=== PATIENT | male | born 1975 | race Caucasian/White ===

== ENCOUNTER 2025-01-24 17:23 | Inpatient (IN) | payer OTHER ==
[2025-01-24] MEDS ORDERED: LORazepam 2 MG/ML INJ IV PRN (17:35)
--- NOTE | 2025-01-24 17:53 | ED ---
General Adult HPI - General Chief complaint: Alcohol Stated complaint: Chest Pain Time Seen by Provider: 01/24/25 17:31 Source: patient, EMS Mode of arrival: EMS Limitations: no limitations - History of Present Illness Initial comments: Dictation was produced using Next audience dictation software. please excuse any grammatical, word or spelling errors. Chief Complaint: 49-year-old male presents emergency department for chest pain. History of Present Illness: Patient is a 49-year-old male transferred from detox facility. He was trying to get himself admitted for alcohol detoxification. During intake procedure he did report to them he had some substernal chest pain that radiate to the shoulder. Patient allegedly has history of cardiac catheterization. He has no stents but may have some coronary artery disease. Patient did report associated nausea. He had symptoms of chest symptoms for last 3 to 4 days. The ROS documented in this emergency department record has been reviewed and confirmed by me. Those systems with pertinent positive or negative responses have been documented in the HPI. All other systems are other negative and/or noncontributory. - Related Data Home Medications Medication Instructions Recorded Confirmed No Known Home Medications 01/24/25 01/24/25 Allergies Allergy/AdvReac Type Severity Reaction Status Date / Time Penicillins Allergy Rash/Hives/ Verified 01/24/25 18:11 Anaphylaxis Review of Systems ROS Statement: Those systems with pertinent positive or pertinent negative responses have been documented in the HPI. ROS Other: All systems not noted in ROS Statement are negative. Past Medical History Past Medical History: Chest Pain / Angina, Hypertension, Seizure Disorder History of Any Multi-Drug Resistant Organisms: None Reported Past Surgical History: No Surgical Hx Reported Past Psychological History: Anxiety, Depression, PTSD Smoking Status: Never smoker Past Alcohol Use History: Daily Past Drug Use History: None Reported General Exam - General Exam Comments Initial Comments: PHYSICAL EXAM: General Impression: Alert and oriented x3, not in acute distress HEENT: Normocephalic atraumatic, extra-ocular movements intact, pupils equal and reactive to light bilaterally, mucous membranes moist. Cardiovascular: Heart regular rate and rhythm Chest: Able to complete full sentences, no retractions, no tachypnea Abdomen: abdomen soft, non-tender, non-distended, no organomegaly Musculoskeletal: Pulses present and equal in all extremities, no peripheral edema Motor: no focal deficits noted Neurological: CN II-XII grossly intact, no focal motor or sensory deficits noted Skin: Intact with no visualized rashes Psych: Normal affect and mood Limitations: no limitations Course Vital Signs 01/24/25 01/24/25 17:38 19:42 Temperature 98.0 F 97.7 F Pulse Rate 70 80 Respiratory 20 20 Rate Blood Pressure 131/70 136/76 O2 Sat by Pulse 99 94 L Oximetry EKG Findings - EKG Comments: EKG Findings:: My EKG interpretation: Ventricular rate 73, sinus rhythm, NM 152, cures 97, QTc 440. No NM prolongation, no QTC prolongation, no ST or T-wave changes noted. Overall, this EKG is unremarkable Medical Decision Making - Medical Decision Making Was pt. sent in by a medical professional or institution (, PA, CARRIAGE SETTER, urgent care, hospital, or penitentiary...) When possible be specific @ -No Did you speak to anyone other than the patient for history (EMS, parent, family, police, friend...)? What history was obtained from this source @ -No Did you review nursing and triage notes (agree or disagree)? Why? @ -I reviewed and agree with nursing and triage notes Were old charts reviewed (outside hosp., previous admission, EMS record, old EKG, old radiological studies, urgent care reports/EKG's, penitentiary records)? Report findings @ -No old charts were reviewed Differential Diagnosis (chest pain, altered mental status, abdominal pain women, abdominal pain men, vaginal bleeding, musculoskeletal, weakness, fever, dyspnea, syncope, headache, dizziness, GI bleed, back pain, seizure, CVA, palpatations, mental health)? @ -Differential Chest Pain: Stable Angina, Unstable Angina, STEMI, NSTEMI Aortic Dissection, Pneumothorax, Musculoskeletal, Esophageal Spasm GERD, Cholecystitis, Pancreatitis, Zoster, this is not meant to be an all-inclusive list. EKG interpreted by me (3pts min.). @ -See above X-rays interpreted by me (1pt min.). @ -Chest x-ray is nonacute CT interpreted by me (1pt min.). @ -None done U/S interpreted by me (1pt. min.). @ -None done What testing was considered but not performed or refused? (CT, X-rays, U/S, labs)? Why? @ -None What meds were considered but not given or refused? Why? @ -None Was smoking cessation discussed for >3mins.? @ -No Were there social determinants of health that impacted care today? How? (Homelessness, low income, unemployed, alcoholism, drug addiction, transportation, low edu. Level, literacy, decrease access to med. care, half-way, rehab)? @ -Alcoholism Was there de-escalation of care discussed even if they declined (Discuss DNR or withdrawal of care, Hospice)? DNR status @ -No What co-morbidities impacted this encounter? (DM, HTN, Smoking, COPD, CAD, Cancer, CVA, ARF, Chemo, Hep., AIDS, mental health diagnosis, sleep apnea, morbid obesity)? @ -History of chest pain Was patient admitted / discharged? Hospital course, mention meds given and route, prescriptions, significant lab abnormalities, going to OR and other pertinent info. @ -49-year-old male presents emergency department for chest pain and detox for alcohol withdrawal he tried to check in at [facility] however was redirected to the ER after a patient complained of chest pain. Patient has no reported clear history of coronary artery disease or coronary artery stent. Does report some chest pain. Patient received aspirin and nitro per EMS. EKG is unremarkable. Laboratory evaluation obtained. Labs within acceptable limits except for troponin of 0.198. No old troponins for comparison. Chest x-ray is nonacute. Patient started on heparin. Case discussed with hospitalist for admission pending discussed with atm mechanic. Did you discuss the management of the patient with other professionals (professionals i.e. , PA, CARRIAGE SETTER, lab, RT, psych nurse, rn social services, auto battery builder, teacher, training officer, case briefer)? Give summary @ -See above Was critical care preformed (if so, how long)? @ -Yes, 33 minutes for NSTEMI Undiagnosed new problem with uncertain prognosis? @ -No Drug Therapy requiring intensive monitoring for toxicity (Heparin, Nitro, Insulin, Cardizem)? @ -No Were any procedures done? @ -No Diagnosis/symptom? Acute, or Chronic, or Acute on Chronic? Uncomplicated (without systemic symptoms) or Complicated (systemic symptoms)? @ -Acute coronary syndrome Side effects of treatment? @ -No Exacerbation, Progression, or Severe Exacerbation? @ -No Poses a threat to life or bodily function? How? (Chest pain, [place], [place], pneumonia, PE, COPD, DKA, ARF, appy, cholecystitis, CVA, Diverticulitis, Homicidal, Suicidal, threat to staff... and all critical care pts) @ -yes - Lab Data Result diagrams: 01/24/25 18:05 01/24/25 18:05 Lab Results 01/24/25 01/24/25 01/24/25 Range/Units 18:05 18:05 18:05 WBC 6.4 (3.8-10.6) k/uL RBC 4.39 (4.30-5.90) m/uL Hgb 13.5 (13.0-17.5) gm/dL Hct 41.3 (39.0-53.0) % MCV 94.2 (80.0-100.0) fL MCH 30.9 (25.0-35.0) pg MCHC 32.7 (31.0-37.0) g/dL RDW 16.1 H (11.5-15.5) % Plt Count 171 (150-450) k/uL MPV 8.4 Neutrophils % 49 % Lymphocytes % 35 % Monocytes % 6 % Eosinophils % 6 % Basophils % 1 % Neutrophils # 3.2 (1.3-7.7) k/uL Lymphocytes # 2.3 (1.0-4.8) k/uL Monocytes # 0.4 (0-1.0) k/uL Eosinophils # 0.4 (0-0.7) k/uL Basophils # 0.0 (0-0.2) k/uL Anisocytosis Slight PT 11.5 (10.0-12.5) sec INR 1.1 (<1.2) APTT 24.0 (22.0-30.0) sec Sodium 136 L (137-145) mmol/L Potassium 4.0 (3.5-5.1) mmol/L Chloride 101 (98-107) mmol/L Carbon Dioxide 21 L (22-30) mmol/L Anion Gap 14 mmol/L BUN 7 L (9-20) mg/dL Creatinine 0.63 L (0.66-1.25) mg/dL Est GFR (CKD-EPI)AfAm >90 (>60 ml/min/1.73 sqM) Est GFR (CKD-EPI)NonAf >90 (>60 ml/min/1.73 sqM) Glucose 85 (74-99) mg/dL Calcium 9.1 (8.4-10.2) mg/dL Magnesium 1.4 L (1.6-2.3) mg/dL Total Bilirubin 0.8 (0.2-1.3) mg/dL AST 52 (17-59) U/L ALT 22 (4-49) U/L Alkaline Phosphatase 125 (38-126) U/L Troponin I (0.000-0.034) ng/mL Total Protein 7.3 (6.3-8.2) g/dL Albumin 4.0 (3.5-5.0) g/dL Serum Alcohol 192 mg/dL 01/24/25 Range/Units 18:05 WBC (3.8-10.6) k/uL RBC (4.30-5.90) m/uL Hgb (13.0-17.5) gm/dL Hct (39.0-53.0) % MCV (80.0-100.0) fL MCH (25.0-35.0) pg MCHC (31.0-37.0) g/dL RDW (11.5-15.5) % Plt Count (150-450) k/uL MPV Neutrophils % % Lymphocytes % % Monocytes % % Eosinophils % % Basophils % % Neutrophils # (1.3-7.7) k/uL Lymphocytes # (1.0-4.8) k/uL Monocytes # (0-1.0) k/uL Eosinophils # (0-0.7) k/uL Basophils # (0-0.2) k/uL Anisocytosis PT (10.0-12.5) sec INR (<1.2) APTT (22.0-30.0) sec Sodium (137-145) mmol/L Potassium (3.5-5.1) mmol/L Chloride (98-107) mmol/L Carbon Dioxide (22-30) mmol/L Anion Gap mmol/L BUN (9-20) mg/dL Creatinine (0.66-1.25) mg/dL Est GFR (CKD-EPI)AfAm (>60 ml/min/1.73 sqM) Est GFR (CKD-EPI)NonAf (>60 ml/min/1.73 sqM) Glucose (74-99) mg/dL Calcium (8.4-10.2) mg/dL Magnesium (1.6-2.3) mg/dL Total Bilirubin (0.2-1.3) mg/dL AST (17-59) U/L ALT (4-49) U/L Alkaline Phosphatase (38-126) U/L Troponin I 0.198 H* (0.000-0.034) ng/mL Total Protein (6.3-8.2) g/dL Albumin (3.5-5.0) g/dL Serum Alcohol mg/dL Disposition Clinical Impression: NSTEMI (non-ST elevated myocardial infarction) Disposition: ADMITTED IP TO THIS HOSP Condition: Fair Referrals: None,Stated [Primary Care Provider] - 1-2 days Decision Time: 19:51
[2025-01-24] MEDS: LORazepam 2 MG/ML INJ IV PRN (18:13)
[2025-01-24 18:14] LABS: Anisocytosis Slight; Basophils % (A) 1 %; Eosinophils # (A) 0.4 k/uL (0-0.7); Eosinophils % (A) 6 %; HCT 41.3 % (39.0-53.0); HGB 13.5 gm/dL (13.0-17.5); Lymphocytes # (A) 2.3 k/uL (1.0-4.8); Lymphocytes % (A) 35 %; MCH 30.9 pg (25.0-35.0); MCHC 32.7 g/dL (31.0-37.0); MCV 94.2 fL (80.0-100.0); Mean Platelet Volume 8.4; Monocytes # (A) 0.4 k/uL (0-1.0); Monocytes % (A) 6 %; Neutrophils # (A) 3.2 k/uL (1.3-7.7); Neutrophils % (A) 49 %; Platelet Count 171 k/uL (150-450); RBC 4.39 m/uL (4.30-5.90); RDW 16.1 % (11.5-15.5); WBC 6.4 k/uL (3.8-10.6)
[2025-01-24 18:21] LABS: INR 1.1 (<1.2); Prothrombin Time 11.5 sec (10.0-12.5)
[2025-01-24 18:24] LABS: ALT 22 U/L (4-49); AST 52 U/L (17-59); African American GFR (CKD) >90 (>60 ml/min/1.73 sqM); Alkaline Phosphatase 125 U/L (38-126); Anion Gap 14 mmol/L; Blood Urea Nitrogen 7 mg/dL (9-20); Calcium 9.1 mg/dL (8.4-10.2); Carbon Dioxide 21 mmol/L (22-30); Chloride 101 mmol/L (98-107); Glucose 85 mg/dL (74-99); Magnesium 1.4 mg/dL (1.6-2.3); Non-African American GFR(CKD) >90 (>60 ml/min/1.73 sqM); Sodium 136 mmol/L (137-145); Total Bilirubin 0.8 mg/dL (0.2-1.3); Total Protein 7.3 g/dL (6.3-8.2)
[2025-01-24 18:31] LABS: Alcohol 192 mg/dL
--- NOTE | 2025-01-24 19:24 | XR ---
EXAMINATION TYPE: XR chest 2V DATE OF EXAM: 01/24/2025 7:15 PM COMPARISON: None. CLINICAL INDICATION: Male, 49 years old with history of Chest Pain, TECHNIQUE: Frontal and lateral views of the chest are obtained. FINDINGS: There is no focal air space opacity, pleural effusion, or pneumothorax seen. The cardiac silhouette size is within normal limits. The osseous structures are intact. IMPRESSION: No acute process. [facility], , 01/24/2025 7:22 PM
[2025-01-24] MEDS ORDERED: NITROGLYCERIN SL TABS 0.4 MG TAB SUBLINGUAL PRN (19:46)
[2025-01-24] MEDS: ASPIRIN 81 MG PO STA (20:13)
[2025-01-24] MEDS: HEPARIN SOD,PORK IN 0.45% NACL 25,000 UNIT in 0.45% NACL 1 250ML.BAG IV SCH (20:14)
[2025-01-24] MEDS: HEPARIN SODIUM 1,000 UN/ML (10ML VL) IV ONE (20:14)
[2025-01-24] MEDS: NITROGLYCERIN-D5W PMX 50 MG in DEXTROSE/WATER 1 250ML.BAG IV SCH (20:56)
[2025-01-24] MEDS ORDERED: ONDANSETRON 4 MG in SODIUM CHLORIDE 0.9% 50 ML IVPB PRN (23:04)
[2025-01-25] MEDS: LORazepam 2 MG/ML INJ IV PRN (01:19)
[2025-01-25] MEDS: HEPARIN SODIUM 1,000 UN/ML (10ML VL) IV PRN (04:17)
[2025-01-25] MEDS ORDERED: ASPIRIN 325 MG TAB PO SCH (09:00)
[2025-01-25] MEDS: ASPIRIN 81 MG PO SCH (10:02)
[2025-01-25 10:41] LABS: Partial Thromboplastin Time 47.9 sec (22.0-30.0)
[2025-01-25 10:52] LABS: Chol/HDL Ratio 1.53 Ratio; LDL Cholesterol,Calculated 38.4 mg/dL (0.0-131.0); VLDL Calculation 8.62 mg/dL (5.00-40.00)
--- NOTE | 2025-01-25 10:59 | P.CRDCN ---
History of Present Illness Consult date: 01/25/25 Reason for Consult (text): Chest pain, elevated troponin History of present illness: This is a 49-year-old male with past medical history of hypertension, seizure disorder, alcohol abuse, marijuana use. We have been asked to evaluate the judy ent for NSTEMI. Patient states that a few months ago, he was seen at [facility] for chest pain and thought he had an [facility] at that time and had a cardiac cath done. Patient was unsure if he had a stent placed but has not been placed on antiplatelet medication. Patient presents to the hospital with what he calls anxiety in his chest that then turns into tightness in his chest that has been going on for about 1 month. He does have nausea when he has the pain along with shortness of breath and sweats. Regarding alcohol, patient drinks 1 L of vodka per day. He uses marijuana 2 to 3 days/week. Regarding his home medications. He states he has not taken any for the last few days. He currently has no medications listed on his home list. Blood pressure 118/74, heart rate 74, pulse ox 96% on room air. Patient is seen today in the emergency center waiting for a bed on the cardiac stepdown unit. Patient has been started on heparin drip and nitroglycerin drip -EKG: Sinus rhythm -Chest x-ray: No acute process. -Laboratory studies: CBC unremarkable. Sodium 136, potassium 4, BUN 7 crea tinine 0.63. Troponin 0.198, 0.194, 0.195. -Home cardiac medications: None Review Of Systems: At the time of my exam: CONSTITUTIONAL: Denies fever or chills. HEENT: Denies blurred vision, vision changes, or eye pain. Denies hemoptysis CARDIOVASCULAR: Reports chest pain. Denies orthopnea. Denies PND. Denies palpitations RESPIRATORY: Denies shortness of breath. GASTROINTESTINAL: Denies abdominal pain. Denies nausea or vomiting. HEMATOLOGIC: Denies bleeding disorders. GENITOURINARY: Denies any blood in urine. SKIN: Denies puritis. Denies rash. Physical examination: Gen: This is a 49-year-old male in no acute distress VS: reviewed HEENT: Head is atraumatic, normocephalic. Pupils equal, round. Sclerae is anicteric. NECK: Supple. No JVD. LUNGS: Clear to auscultation. No wheezes or rhonchi. No intercostal retractions. HEART: Regular rate and rhythm. No murmur. ABDOMEN: Soft No tenderness. EXTREMITIES: No pedal edema. No calf tenderness. NEUROLOGICAL: Patient is awake, alert and oriented x3. Assessment: NSTEMI with a flat pattern Alcohol use of 1 L of vodka daily Marijuana use Plan: Continue heparin drip Continue nitroglycerin drip Obtain records from [place] Obtain 2-D echocardiogram and Doppler study to assess cardiac structure and function Further recommendations to follow based upon clinical course Thank you kindly for this consultation. Nurse practitioner note has been reviewed, I agree with documented findings and plan of care. Patient was seen and examined. Past Medical History Past Medical History: Chest Pain / Angina, Hypertension, Seizure Disorder History of Any Multi-Drug Resistant Organisms: None Reported Past Surgical History: No Surgical Hx Reported Past Psychological History: Anxiety, Depression, PTSD Smoking Status: Never smoker Past Alcohol Use History: Daily Past Drug Use History: None Reported Medications and Allergies Home Medications Medication Instructions Recorded Confirmed Type No Known Home Medications 01/24/25 01/24/25 History Allergies Allergy/AdvReac Type Severity Reaction Status Date / Time Penicillins Allergy Rash/Hives/ Verified 01/24/25 18:11 Anaphylaxis Physical Exam Vitals: Vital Signs Temp Pulse Resp BP Pulse Ox 01/25/25 07:38 74 18 118/74 96 01/25/25 05:24 64 20 112/54 98 01/25/25 03:22 65 18 110/74 94 L 01/25/25 02:25 88 20 129/62 94 L 01/25/25 01:10 94 20 108/83 95 01/25/25 00:10 86 18 118/70 96 01/24/25 23:25 85 20 119/66 94 L 01/24/25 23:00 89 16 122/74 94 L 01/24/25 22:00 99 16 100/56 93 L 01/24/25 21:30 92 125/70 01/24/25 21:15 84 131/74 01/24/25 21:01 84 18 127/68 93 L 01/24/25 19:42 97.7 F 80 20 136/76 94 L 01/24/25 17:38 98.0 F 70 20 131/70 99 Intake and Output 01/24/25 01/25/25 01/25/25 22:59 06:59 14:59 Intake Total 96.917 Balance 96.917 Intake: Intake, IV Titration 96.917 Amount Heparin Sod,Pork in 0.45% 79.167 NaCl 25,000 unit In 0.45 % NaCl 1 250ml.bag @ 8.8 UNITS/KG/HR 9.979 mls/hr IV .Q24H [facility] Rx#: [id number] Nitroglycerin-D5w Pmx 50 17.75 mg In Dextrose/Water 1 250ml.bag @ 5 MCG/MIN 1.5 mls/hr IV .Q24H [facility] Rx#: [id number] Other: Weight 113.398 kg Results 01/24/25 18:05 01/24/25 18:05 Cardiac Enzymes 01/24/25 01/24/25 01/24/25 Range/Units 18:05 18:05 21:02 AST 52 (17-59) U/L Troponin I 0.198 H* 0.194 H* (0.000-0.034) ng/mL 01/25/25 Range/Units 02:47 AST (17-59) U/L Troponin I 0.195 H* (0.000-0.034) ng/mL Coagulation 01/24/25 01/25/25 Range/Units 18:05 02:47 PT 11.5 (10.0-12.5) sec APTT 24.0 35.2 H (22.0-30.0) sec CBC 01/24/25 Range/Units 18:05 WBC 6.4 (3.8-10.6) k/uL RBC 4.39 (4.30-5.90) m/uL Hgb 13.5 (13.0-17.5) gm/dL Hct 41.3 (39.0-53.0) % Plt Count 171 (150-450) k/uL Comprehensive Metabolic Panel 01/24/25 Range/Units 18:05 Sodium 136 L (137-145) mmol/L Potassium 4.0 (3.5-5.1) mmol/L Chloride 101 (98-107) mmol/L Carbon Dioxide 21 L (22-30) mmol/L BUN 7 L (9-20) mg/dL Creatinine 0.63 L (0.66-1.25) mg/dL Glucose 85 (74-99) mg/dL Calcium 9.1 (8.4-10.2) mg/dL AST 52 (17-59) U/L ALT 22 (4-49) U/L Alkaline Phosphatase 125 (38-126) U/L Total Protein 7.3 (6.3-8.2) g/dL Albumin 4.0 (3.5-5.0) g/dL Current Medications Generic Name Dose Route Start Last Admin Trade Name Freq PRN Reason Stop Dose Admin Heparin Sodium (Porcine) 0 unit 01/25/25 04:05 01/25/25 04:17 Heparin Sodium 1,000 Un/Ml (10ml Vl) IV 2,834.95 unit PER PROTOCOL PRN Administration Low PTT Protocol Heparin Sodium/Sodium Chloride 250 mls @ 9.979 mls/hr 01/24/25 20:00 01/25/25 04:10 25,000 unit/ Sodium Chloride IV 10.8 units/kg/hr .Q24H [facility] 12.247 mls/hr Titration Protocol 8.8 UNITS/KG/HR Nitroglycerin/Dextrose 50 mg/ 250 mls @ 1.5 mls/hr 01/24/25 20:45 01/25/25 04:29 IV Solution IV 15 mcg/min .Q24H [facility] 4.5 mls/hr Titration Protocol 5 MCG/MIN Lorazepam 1 mg 01/24/25 17:35 01/25/25 06:38 Lorazepam 2 Mg/Ml Inj IV 1 mg Q1HR PRN Administration CIWA 10 to 15 Lorazepam 1 mg 01/24/25 17:35 01/25/25 04:26 Lorazepam 2 Mg/Ml Inj IV 1 mg Q2HR PRN Administration CIWA 8 or 9 Lorazepam 2 mg 01/24/25 17:35 Lorazepam 2 Mg/Ml Inj IV 01/26/25 17:36 Q10M PRN CIWA 16 or higher Nitroglycerin 0.4 mg 01/24/25 19:46 Nitroglycerin Sl Tabs 0.4 Mg Tab SUBLINGUAL Q5M PRN Chest Pain Ondansetron HCl 4 mg 01/24/25 23:16 Ondansetron 4 Mg/2 Ml Vial IVP Q6H PRN NAUSEA AND VOMITING Intake and Output 02/01/25/25 01/25/25 22:59 06:59 14:59 Intake Total 96.917 Balance 96.917 Intake: Intake, IV Titration 96.917 Amount Heparin Sod,Pork in 0.45% 79.167 NaCl 25,000 unit In 0.45 % NaCl 1 250ml.bag @ 8.8 UNITS/KG/HR 9.979 mls/hr IV .Q24H [facility] Rx#: [id number] Nitroglycerin-D5w Pmx 50 17.75 mg In Dextrose/Water 1 250ml.bag @ 5 MCG/MIN 1.5 mls/hr IV .Q24H [facility] Rx#: [id number] Other: Weight 113.398 kg 01/24/25 18:05 01/24/25 18:05
[2025-01-25] MEDS: MAGNESIUM SULFATE-D5W PMX 1 GM in DEXTROSE/WATER 1 100ML.BAG IVPB SCH (12:49)
--- NOTE | 2025-01-25 14:22 | P.HPIM ---
History of Present Illness H&P Date: 01/25/25 Chief Complaint: Chest pain Patient is a 49 year old male with past medical history of angina, cardiac catheterization, hypertension, seizure disorder presented to the ED with chest pain. Patient states that he began experiencing chest tightness yesterday. He was trying to get himself admitted to [place] for alcohol detoxification. He then endorsed substernal chest pain that radiated to the shoulder. Associated with that he experienced nausea. He was transferred from [place] to the ED here. Patient reports having a cardiac catheterization done in the past but denies any stents placed. Denies fever, chills, shortness of breath, cough, palpitations, abdominal pain, vomiting, hematuria, dysuria, hematochezia, melena, headache, slurred speech, numbness, tingling, dizziness, lightheadedness, blurred vision, double vision. ED documentation reviewed. In the ED patient was treated with aspirin 325 mg, heparin drip, lorazepam 1 mg, nitro drip. Vitals on admission T 98 F, NV 70 bpm, RR 20, BP 131/70, oxygen saturation 99% on room air EKG independently interpreted as sinus rhythm, RBBB, rate 64 bpm, QTc 464 ms Chest x-ray shows no acute process Labs on admission show WBC 6.4, hemoglobin 13.5, RDW 16.1, platelet count 171, INR 1.1, APTT 24, sodium 136, potassium 4, bicarb 21, anion gap 14, BUN 7, cre atinine 0.60, from 1.4 Troponin I 0.198, 0.194, 0.195 Serum alcohol 192 Lipid panel shows triglycerides 43, cholesterol 135, LDL 38.4, VLDL 8.62, HDL 88 Review of systems: Pertinent positives and negatives as discussed in HPI, a complete review of s ystems was performed and all other systems are negative. Social history: Tobacco: Never smoker Alcohol: Daily Recreational drugs: Denies use Travel: No recent travel history Sick contacts: None Physical examination: Vital signs reviewed General: nontoxic, no distress, appears at stated age Derm: warm, dry, intact Head: atraumatic, normocephalic, symmetric Eyes: EOMI, anicteric sclera Mouth: no lip lesion, mucus membranes moist Cardiovascular: S1 S2 reg, no murmur Lungs: CTA bilateral, no rhonchi, no rales, no accessory muscle use Abdominal: soft, non-tender to palpation Extremities: No cyanosis, clubbing, or pedal edema. Neuro: Alert, Oriented, Gross neurological examination did not reveal any focal deficits. Psych: well appearing, appropriate affect Assessment/Plan: Patient is a 49 year old male with past medical history of angina, cardiac catheterization, hypertension, seizure disorder presented to the ED with chest pain. Active: #. NSTEMI EKG independently interpreted as sinus rhythm, RBBB, rate 64 bpm, QTc 464 ms Troponin I 0.198, 0.194, 0.195 Lipid panel shows triglycerides 43, cholesterol 135, LDL 38.4, VLDL 8.62, HDL 88 Continue nitroglycerin 0.4 mg sublingual Q5M as needed for chest pain Continue heparin drip and nitro drip Continue aspirin 81 mg p.o. daily, atorvastatin 80 mg p.o. at bedtime Obtain echocardiogram Continue telemetry monitoring Cardiology consulted #. Alcohol withdrawal Serum alcohol 192 Lorazepam 1 mg IV every 2 hours as needed for CIWA 8 or 9, Lorazepam 1 mg IV every hour as needed for CIWA 10-15, Lorazepam 2 mg IV Q10M as needed for CIWA 16 or higher Assess CIWA scale #. Nausea and vomiting Continue ondansetron 4 mg IVP every 6 hours as needed #. Mild hyponatremia Sodium 136 Monitor BMP #. Hypomagnesemia Mg 1.4 Magnesium sulphate 4 gms IVPB Q1H Monitor Mg level F: None E: Replete magnesium DVT prophylaxis: Heparin drip and SCD GI prophylaxis: Pantoprazole 40 mg PO daily The patient is admitted with an anticipated more than 2 midnight stay for evaluation of chest pain CODE STATUS: FULL CODE Discussed with: Patient Anticipated discharge place: Home Past Medical History Past Medical History: Chest Pain / Angina, Hypertension, Seizure Disorder History of Any Multi-Drug Resistant Organisms: None Reported Past Surgical History: No Surgical Hx Reported Past Psychological History: Anxiety, Depression, PTSD Smoking Status: Never smoker Past Alcohol Use History: Daily Past Drug Use History: None Reported Medications and Allergies Home Medications Medication Instructions Recorded Confirmed Type No Known Home Medications 01/24/25 01/24/25 History Allergies Allergy/AdvReac Type Severity Reaction Status Date / Time Penicillins Allergy Rash/Hives/ Verified 01/24/25 18:11 Anaphylaxis Physical Exam Vitals: Vital Signs Temp Pulse Resp BP Pulse Ox 01/25/25 07:38 74 18 118/74 96 01/25/25 05:24 64 20 112/54 98 01/25/25 03:22 65 18 110/74 94 L 01/25/25 02:25 88 20 129/62 94 L 01/25/25 01:10 94 20 108/83 95 01/25/25 00:10 86 18 118/70 96 01/24/25 23:25 85 20 119/66 94 L 01/24/25 23:00 89 16 122/74 94 L 01/24/25 22:00 99 16 100/56 93 L 01/24/25 21:30 92 125/70 01/24/25 21:15 84 131/74 01/24/25 21:01 84 18 127/68 93 L 01/24/25 19:42 97.7 F 80 20 136/76 94 L 01/24/25 17:38 98.0 F 70 20 131/70 99 Intake and Output 01/24/25 01/25/25 01/25/25 22:59 06:59 14:59 Intake Total 96.917 Balance 96.917 Intake: Intake, IV Titration 96.917 Amount Heparin Sod,Pork in 0.45% 79.167 NaCl 25,000 unit In 0.45 % NaCl 1 250ml.bag @ 8.8 UNITS/KG/HR 9.979 mls/hr IV .Q24H [facility] Rx#: [id number] Nitroglycerin-D5w Pmx 50 17.75 mg In Dextrose/Water 1 250ml.bag @ 5 MCG/MIN 1.5 mls/hr IV .Q24H [facility] Rx#: [id number] Other: Weight 113.398 kg Results CBC & Chem 7: 01/24/25 18:05 01/24/25 18:05 Labs: Abnormal Lab Results - Last 24 Hours (Table) 01/24/25 01/24/25 01/24/25 Range/Units 18:05 18:05 18:05 RDW 16.1 H (11.5-15.5) % APTT (22.0-30.0) sec Sodium 136 L (137-145) mmol/L Carbon Dioxide 21 L (22-30) mmol/L BUN 7 L (9-20) mg/dL Creatinine 0.63 L (0.66-1.25) mg/dL Magnesium 1.4 L (1.6-2.3) mg/dL Troponin I 0.198 H* (0.000-0.034) ng/mL 01/24/25 01/25/25 01/25/25 Range/Units 21:02 02:47 02:47 RDW (11.5-15.5) % APTT 35.2 H (22.0-30.0) sec Sodium (137-145) mmol/L Carbon Dioxide (22-30) mmol/L BUN (9-20) mg/dL Creatinine (0.66-1.25) mg/dL Magnesium (1.6-2.3) mg/dL Troponin I 0.194 H* 0.195 H* (0.000-0.034) ng/mL
[2025-01-25] MEDS: chlordiazePOXIDE 25 MG CAP PO SCH (18:24)
[2025-01-25] MEDS: ONDANSETRON 4 MG/2 ML VIAL IVP PRN (19:50)
[2025-01-25] MEDS: ATORVASTATIN 80 MG TAB PO SCH (21:10)
[2025-01-25 23:43] VITALS: RESP 18
[2025-01-26] MEDS: PANTOPRAZOLE 40 MG TABLET PO SCH (06:17)
[2025-01-26 07:04] LABS: Anisocytosis Slight; HCT 35.8 % (39.0-53.0); HGB 11.6 gm/dL (13.0-17.5); MCH 31.1 pg (25.0-35.0); MCHC 32.3 g/dL (31.0-37.0); MCV 96.5 fL (80.0-100.0); Mean Platelet Volume 8.6; Platelet Count 111 k/uL (150-450); RBC 3.71 m/uL (4.30-5.90); RDW 16.1 % (11.5-15.5); WBC 5.5 k/uL (3.8-10.6)
[2025-01-26 07:29] LABS: African American GFR (CKD) >90 (>60 ml/min/1.73 sqM); Anion Gap 6 mmol/L; Blood Urea Nitrogen 6 mg/dL (9-20); Calcium 8.5 mg/dL (8.4-10.2); Carbon Dioxide 29 mmol/L (22-30); Chloride 99 mmol/L (98-107); Glucose 115 mg/dL (74-99); Non-African American GFR(CKD) >90 (>60 ml/min/1.73 sqM); Potassium 3.8 mmol/L (3.5-5.1); Sodium 134 mmol/L (137-145)
[2025-01-26 10:13] VITALS: BP 152/69; PULSE 95; TEMP 98
--- NOTE | 2025-01-26 11:55 | P.PN ---
Subjective Progress Note Date: 01/26/25 Principal diagnosis: Hospital course: Patient is a 49 year old male with past medical history of angina, cardiac catheterization, hypertension, seizure disorder presented to the ED with chest pain. Patient states that he began experiencing chest tightness yesterday. He was trying to get himself admitted to [place] for alcohol detoxification. He then endorsed substernal chest pain that radiated to the shoulder. Associated with that he experienced nausea. He was transferred from [place] to the ED here. Patient reports having a cardiac catheterization done in the past but denies any stents placed. Denies fever, chills, shortness of breath, cough, palpitations, abdominal pain, vomiting, hematuria, dysuria, hematochezia, melena, headache, slurred speech, numbness, tingling, dizziness, lightheadedness, blurred vision, double vision. ED documentation reviewed. In the ED patient was treated with aspirin 325 mg, heparin drip, lorazepam 1 mg, nitro drip. Vitals on admission T 98 F, NJ 70 bpm, RR 20, BP 131/70, oxygen saturation 99% on room air EKG independently interpreted as sinus rhythm, RBBB, rate 64 bpm, QTc 464 ms Chest x-ray shows no acute process Labs on admission show WBC 6.4, hemoglobin 13.5, RDW 16.1, platelet count 171, INR 1.1, APTT 24, sodium 136, potassium 4, bicarb 21, anion gap 14, BUN 7, creatinine 0.60, from 1.4 Troponin I 0.198, 0.194, 0.195 Serum alcohol 192 Lipid panel shows triglycerides 43, cholesterol 135, LDL 38.4, VLDL 8.62, HDL 88 01/26/25: Patient seen and examined at bedside today. Vital signs are stable. Labs today show hemoglobin 11.6, platelet count 111, APTT 36.9, sodium 134, D- dimer 0.48, creatinine 0.71. Review of systems: Pertinent positives and negatives as discussed in HPI, a complete review of systems was performed and all other systems are negative. Vitals: Signs Reviewed Physical examination: General: nontoxic, no distress, appears at stated age Derm: warm, dry, intact Head: atraumatic, normocephalic, symmetric Eyes: EOMI, anicteric sclera Mouth: no lip lesion, mucus membranes moist Cardiovascular: S1 S2 reg, no murmur Lungs: CTA bilateral, no rhonchi, no rales, no accessory muscle use Abdominal: soft, non-tender to palpation Extremities: No cyanosis, clubbing, or pedal edema. Neuro: Alert, Oriented, Gross neurological examination did not reveal any focal deficits. Psych: well appearing, appropriate affect Assessment/Plan: Patient is a 49 year old male with past medical history of angina, cardiac catheterization, hypertension, seizure disorder presented to the ED with chest pain. Active: #. NSTEMI EKG independently interpreted as sinus rhythm, RBBB, rate 64 bpm, QTc 464 ms Troponin I 0.198, 0.194, 0.195 Lipid panel shows triglycerides 43, cholesterol 135, LDL 38.4, VLDL 8.62, HDL 88 Continue nitroglycerin 0.4 mg sublingual Q5M as needed for chest pain Continue heparin drip and nitro drip Continue aspirin 81 mg p.o. daily, atorvastatin 80 mg p.o. at bedtime Obtain echocardiogram Continue telemetry monitoring Cardiology consulted #. Alcohol withdrawal Serum alcohol 192 Lorazepam 1 mg IV every 2 hours as needed for CIWA 8 or 9, Lorazepam 1 mg IV every hour as needed for CIWA 10-15, Lorazepam 2 mg IV Q10M as needed for CIWA 16 or higher Assess CIWA scale Seizure precautions Consult psych #. Nausea and vomiting Continue ondansetron 4 mg IVP every 6 hours as needed #. Mild hyponatremia Sodium 136 Monitor BMP #. Hypomagnesemia Mg 1.4 Magnesium sulphate 4 gms IVPB Q1H Monitor Mg level F: None E: Replete magnesium N: Heart healthy diet DVT prophylaxis: Heparin drip and SCD GI prophylaxis: Pantoprazole 40 mg PO daily Objective - Vital Signs Vital signs: Vital Signs Temp 97.7 F 01/26/25 03:33 Pulse 71 01/26/25 03:33 Resp 18 01/26/25 03:33 BP 121/81 01/26/25 03:33 Pulse Ox 98 01/26/25 03:33 FiO2 Intake & Output 01/25/25 01/26/25 01/26/25 18:59 06:59 18:59 Intake Total 701.947 0890.738 Balance 054.999 0860.738 Weight 108.5 kg Intake: Intake, IV Titration 182.792 16.738 Amount Heparin Sod,Pork in 0.45% 134.717 16.738 NaCl 25,000 unit In 0.45 % NaCl 1 250ml.bag @ 8.8 UNITS/KG/HR 9.979 mls/hr IV .Q24H [facility] Rx#: [id number] Nitroglycerin-D5w Pmx 50 48.075 mg In Dextrose/Water 1 250ml.bag @ 5 MCG/MIN 1.5 mls/hr IV .Q24H [facility] Rx#: [id number] Oral 1020 Other: Voiding Method Toilet # Voids 3 - Labs CBC & Chem 7: 01/26/25 06:36 01/26/25 06:36 Labs: Abnormal Lab Results - Last 24 Hours (Table) 01/25/25 01/25/25 01/26/25 Range/Units 02:47 10:17 06:36 RBC (4.30-5.90) m/uL Hgb (13.0-17.5) gm/dL Hct (39.0-53.0) % RDW (11.5-15.5) % Plt Count (150-450) k/uL APTT 47.9 H 36.9 H (22.0-30.0) sec Sodium (137-145) mmol/L BUN (9-20) mg/dL Glucose (74-99) mg/dL HDL Cholesterol 88.00 H (40.00-60.00) mg/dL 01/26/25 01/26/25 Range/Units 06:36 06:36 RBC 3.71 L (4.30-5.90) m/uL Hgb 11.6 L (13.0-17.5) gm/dL Hct 35.8 L (39.0-53.0) % RDW 16.1 H (11.5-15.5) % Plt Count 111 L (150-450) k/uL APTT (22.0-30.0) sec Sodium 134 L (137-145) mmol/L BUN 6 L (9-20) mg/dL Glucose 115 H (74-99) mg/dL HDL Cholesterol (40.00-60.00) mg/dL
--- NOTE | 2025-01-26 12:20 | P.DS ---
Providers Date of admission: 01/24/25 19:47 Expected date of discharge: 01/26/25 Attending physician: Bipin Burns Consults: 01/24/25 19:46 Consult Physician Urgent Consulting Provider: Gricel Murphy Consult Reason/Comments: chest pain, elevated troponin Do you want consulting provider notified?: Yes 01/26/25 07:10 Consult Physician Urgent Consulting Provider: Drew Bal Consult Reason/Comments: sucidal Do you want consulting provider notified?: Yes Primary care physician: Stated None Hospital Course: THIS IS NOT A DISCHARGE SUMMARY, BUT A SUMMARY OF CARE PT LEFT AGAINST MEDICAL ADVICE. Diagnosis: NSTEMI Alcohol withdrawal Nausea and vomiting Mild hyponatremia Hypomagnesemia Suicidal ideation Hospital Course: Patient is a 49 year old male with past medical history of angina, cardiac catheterization, hypertension, seizure disorder presented to the ED with chest pain. Patient states that he began experiencing chest tightness yesterday. He was trying to get himself admitted to [place] for alcohol detoxification. He then endorsed substernal chest pain that radiated to the shoulder. Associated with that he experienced nausea. He was transferred from [place] to the ED here. Patient reports having a cardiac catheterization done in the past but denies any stents placed. Denies fever, chills, shortness of breath, cough, palpitations, abdominal pain, vomiting, hematuria, dysuria, hematochezia, melena, headache, slurred speech, numbness, tingling, dizziness, lightheadedness, blurred vision, double vision. ED documentation reviewed. In the ED patient was treated with aspirin 325 mg, heparin drip, lorazepam 1 mg, nitro drip. Vitals on admission T 98 F, [place] 70 bpm, RR 20, BP 131/70, oxygen saturation 99% on room air. EKG independently interpreted as sinus rhythm, RBBB, rate 64 bpm, QTc 464 ms. Chest x-ray shows no acute process. Labs on admission show WBC 6.4, hemoglobin 13.5, RDW 16.1, platelet count 171, INR 1.1, APTT 24, sodium 136, potassium 4, bicarb 21, anion gap 14, BUN 7, creatinine 0.60, from 1.4. Troponin I 0.198, 0.194, 0.195. Serum alcohol 192. Lipid panel shows tr iglycerides 43, cholesterol 135, LDL 38.4, VLDL 8.62, HDL 88 01/26/25: Patient seen and examined at bedside today. Vital signs are stable. Labs today show hemoglobin 11.6, platelet count 111, APTT 36.9, sodium 134, D- dimer 0.48, creatinine 0.71. Patient was admitted under our services with consultation to Cardiology for NSTEMI and Psychiatry for suicidal ideation. Patient was awaiting , however received notification from RN that patient was no longer willing to stay in the hospital and was signing out AGAINST MEDICAL ADVICE. Pt was highly upset about sitter in his room for suicide precautions and wants to leave AMA. Patient was unable to be encouraged to stay and left AGAINST MEDICAL ADVICE. Patient is strongly advised follow up with PCP in 1-2 days and clinical unit coordinator in 1 week. Vital signs are reviewed. General: nontoxic, no distress, appears at stated age Derm: warm, dry, intact Head: atraumatic, normocephalic, symmetric Eyes: EOMI, anicteric sclera Mouth: no lip lesion, mucus membranes moist Cardiovascular: S1 S2 reg, no murmur Lungs: CTA bilateral, no rhonchi, no rales, no accessory muscle use Abdominal: soft, non-tender to palpation Extremities: No cyanosis, clubbing, or pedal edema. Neuro: Alert, Oriented, Gross neurological examination did not reveal any focal deficits. Psych: well appearing, appropriate affect PT LEFT AGAINST MEDICAL ADVICE on 01/26/25 at 1100. Patient Condition at Discharge: Fair Plan - Discharge Summary Discharge Rx Participant: Yes New Discharge Prescriptions: No Action No Known Home Medications Discharge Medication List No Known Home Medications 01/24/25 [History] Follow up Appointment(s)/Referral(s): None,Stated [Primary Care Provider] - 1-2 days Discharge Disposition: LEFT AGAINST MEDICAL ADVICE
--- NOTE | 2025-01-26 12:21 | CA ---
Transthoracic Echo Report Name: Mikcey Haq Age: 49 Gender: M : 1975 Exam Date: 01/25/2025 14:37 Exam Location: [facility] Ht (in): 69 Wt (lb): 250 Ordering Physician: Kareen Brown Attending/Referring Phys: [id number], Stephanie [employer] Pump Installer Charo Saldaña RDCS Procedure CPT: Indications: nstemi Cardiac Hx: Technical Quality: Fair Contrast 1: Total Dose (mL): Contrast 2: Total Dose (mL): MEASUREMENTS (Male / Female) Normal Values 2D ECHO LV Diastolic Diameter PLAX 4.8 cm 4.2 - 5.9 / 3.9 - 5.3 cm LV Systolic Diameter PLAX 3.1 cm IVS Diastolic Thickness 1.8 cm 0.6 - 1.0 / 0.6 - 0.9 cm LVPW Diastolic Thickness 1.6 cm 0.6 - 1.0 / 0.6 - 0.9 cm LV Relative Wall Thickness 0.7 RV Internal Dim ED PLAX 2.0 cm LA Systolic Diameter LX 4.1 cm 3.0 - 4.0 / 2.7 - 3.8 cm LV Diastolic Volume MOD BP 82.7 cm??? 67 - 155 / 56 - 104 cm??? LV Systolic Volume MOD BP 19.8 cm??? 22 - 58 / 19 - 49 cm??? LV Ejection Fraction MOD BP 76.0 % >= 55 % LV Cardiac Index MOD BP 2021.0 cm???/min???m??? LV Diastolic Volume MOD 4C 81.0 cm??? LV Systolic Volume MOD 4C 15.5 cm??? LV Ejection Fraction MOD 4C 80.9 % LV Cardiac Index MOD 4C 2105.3 cm???/min???m??? LV Diastolic Length 4C 8.5 cm LV Systolic Length 4C 6.2 cm LV Diastolic Volume MOD 2C 74.6 cm??? LV Systolic Volume MOD 2C 25.6 cm??? LV Ejection Fraction MOD 2C 65.6 % LV Cardiac Index MOD 2C 1574.6 cm???/min???m??? LV Diastolic Length 2C 7.4 cm LV Systolic Length 2C 6.2 cm LA Volume 43.6 cm??? 18 - 58 / 22 - 52 cm??? LA Volume Index 18.2 cm???/m??? 16 - 28 cm???/m??? M-MODE Aortic Root Diameter MM 3.5 cm LA Systolic Diameter MM 3.0 cm LA Ao Ratio MM 0.9 AV Cusp Separation MM 2.0 cm DOPPLER AV Peak Velocity 170.5 cm/s AV Peak Gradient 11.6 mmHg MV Area PHT 2.5 cm??? Mitral E Point Velocity 65.8 cm/s Mitral A Point Velocity 85.9 cm/s Mitral E to A Ratio 0.8 MV Deceleration Time 307.6 ms TR Peak Velocity 187.2 cm/s TR Peak Gradient 14.0 mmHg FINDINGS Left Ventricle Left ventricular ejection fraction is estimated at 60-65 %. Mild concentric LVH. Normal left ventricular systolic function. No obvious regional wall motion abnormalities. Left ventricular cavity size normal. Right Ventricle Normal right ventricular size and function. Normal right ventricular global systolic function. Right Atrium Normal right atrial size. Left Atrium Normal left atrial size. Mitral Valve Structurally normal mitral valve. Trace mitral regurgitation. No mitral stenosis. Aortic Valve Trileaflet aortic valve. No aortic valve stenosis or regurgitation. Tricuspid Valve Structurally normal tricuspid valve. Mild tricuspid regurgitation. No tricuspid stenosis. Pulmonic Valve Structurally normal pulmonic valve. Trace pulmonic regurgitation. No pulmonic stenosis. Pericardium No pericardial or pleural effusion. Echo free space anterior to the right ventricle likely represents a fat pad. Aorta Normal size aortic root and proximal ascending aorta. CONCLUSIONS LVEF 60% No obvious regional wall motion abnormality Mild concentric LVH Mild tricuspid regurgitation Epicardial fat Normal RV size and systolic function Previewed by: Dr Sundeep Bright (Electronically Signed) Final Date: 26 January 2025 12:20
== END 2025-01-26 10:47 | disposition left against medical advice (07) | DRG 190 ==
LOC: EC 17:23 → 3SCARD 19:47
PROVIDERS: ADMIT Hospitalist; ATTEND Hospitalist
DX: I21.4 Non-ST elevation (NSTEMI) myocardial infarction (principal); I45.10 Unspecified right bundle-branch block; R45.851 Suicidal ideations; I10 Essential (primary) hypertension; G40.909 Epilepsy, unspecified, not intractable, without status epilepticus; F43.10 Post-traumatic stress disorder, unspecified; F32.A Depression, unspecified; E87.1 Hypo-osmolality and hyponatremia; E83.42 Hypomagnesemia; F10.139 Alcohol abuse with withdrawal, unspecified; F41.9 Anxiety disorder, unspecified; Z53.29 Procedure and treatment not carried out because of patient's decision for other reasons; R11.2 Nausea with vomiting, unspecified; R47.81 Slurred speech; Y90.6 Blood alcohol level of 120-199 mg/100 ml; Z88.0 Allergy status to penicillin
CPT/HCPCS: 36415; 71046; 80048; 80053; 80061; 80320; 83735; 84484; 85025; 85027; 85379; 85610; 85730; 93005; 93306; 96365; 96366; 96368; 96375; 96376; 99291

== ENCOUNTER 2025-01-26 17:42 | Observation (INO) | payer OTHER ==
[2025-01-26 18:49] LABS: Anisocytosis Slight; Basophils % (A) 1 %; Eosinophils # (A) 0.4 k/uL (0-0.7); Eosinophils % (A) 6 %; HCT 38.3 % (39.0-53.0); HGB 12.4 gm/dL (13.0-17.5); Lymphocytes # (A) 1.6 k/uL (1.0-4.8); Lymphocytes % (A) 22 %; MCH 30.7 pg (25.0-35.0); MCHC 32.3 g/dL (31.0-37.0); Mean Platelet Volume 8.8; Monocytes # (A) 0.4 k/uL (0-1.0); Monocytes % (A) 5 %; Neutrophils # (A) 4.7 k/uL (1.3-7.7); Neutrophils % (A) 64 %; Platelet Count 128 k/uL (150-450); RBC 4.03 m/uL (4.30-5.90); RDW 16.1 % (11.5-15.5); WBC 7.3 k/uL (3.8-10.6)
[2025-01-26 19:01] LABS: ALT 26 U/L (4-49); AST 52 U/L (17-59); African American GFR (CKD) >90 (>60 ml/min/1.73 sqM); Albumin 3.8 g/dL (3.5-5.0); Alkaline Phosphatase 96 U/L (38-126); Anion Gap 9 mmol/L; Blood Urea Nitrogen 4 mg/dL (9-20); Calcium 8.9 mg/dL (8.4-10.2); Carbon Dioxide 23 mmol/L (22-30); Chloride 105 mmol/L (98-107); Glucose 103 mg/dL (74-99); Magnesium 1.7 mg/dL (1.6-2.3); Non-African American GFR(CKD) >90 (>60 ml/min/1.73 sqM); Potassium 3.8 mmol/L (3.5-5.1); Sodium 137 mmol/L (137-145)
[2025-01-26 19:05] LABS: Alcohol 177 mg/dL
--- NOTE | 2025-01-26 19:52 | ED ---
General Adult HPI - General Chief complaint: Alcohol Stated complaint: weakness Time Seen by Provider: 01/26/25 17:57 Source: patient, RN notes reviewed, old records reviewed Mode of arrival: ambulatory Limitations: no limitations - History of Present Illness Initial comments: 49-year-old male history of alcohol abuse presenting from [facility] for me dical evaluation. Patient was seen at this hospital several days prior and had a elevated troponin. He was awaiting cardiology evaluation and left AGAINST MEDICAL ADVICE. He had gone to [facility] today for alcohol abuse. His alcohol level was high and given this recent cardiac issue he was sent to the emergency department for further evaluation. He denies current chest pain. Patient is clinically intoxicated at the time my evaluation. - Related Data Home Medications Medication Instructions Recorded Confirmed Aspirin 81 mg PO DIRECTED 01/26/25 01/26/25 Atorvastatin [Lipitor] 40 mg PO DIRECTED 01/26/25 01/26/25 Allergies Allergy/AdvReac Type Severity Reaction Status Date / Time Penicillins Allergy Rash/Hives/ Verified 01/26/25 19:41 Anaphylaxis Review of Systems ROS Statement: Those systems with pertinent positive or pertinent negative responses have been documented in the HPI. ROS Other: All systems not noted in ROS Statement are negative. Past Medical History Past Medical History: Chest Pain / Angina, Hypertension, Seizure Disorder History of Any Multi-Drug Resistant Organisms: None Reported Past Surgical History: No Surgical Hx Reported Past Anesthesia/Blood Transfusion Reactions: No Reported Reaction Past Psychological History: Anxiety, Depression, PTSD Smoking Status: Never smoker Past Alcohol Use History: Daily Past Drug Use History: None Reported General Exam Limitations: no limitations General appearance: alert, in no apparent distress Head exam: Present: atraumatic, normocephalic Eye exam: Present: normal appearance, PERRL ENT exam: Present: normal exam Neck exam: Present: normal inspection. Absent: tenderness, meningismus Respiratory exam: Present: normal lung sounds bilaterally. Absent: respiratory distress, wheezes Cardiovascular Exam: Present: regular rate, normal rhythm GI/Abdominal exam: Present: soft. Absent: distended, tenderness Neurological exam: Present: alert, oriented X3, CN II-XII intact. Absent: motor sensory deficit Psychiatric exam: Present: flat affect Skin exam: Present: warm, dry, intact. Absent: cyanosis, diaphoretic Course Vital Signs 01/26/25 01/26/25 17:50 19:44 Temperature 97.7 F Pulse Rate 85 91 Respiratory 16 15 Rate Blood Pressure 118/71 120/54 O2 Sat by Pulse 95 96 Oximetry Medical Decision Making - Medical Decision Making Was pt. sent in by a medical professional or institution ([facility], TIRE DEBEADER, urgent care, hospital, or assisted...) When possible be specific @ -No Did you speak to anyone other than the patient for history (EMS, parent, family, police, friend...)? What history was obtained from this source @ -No Did you review nursing and triage notes (agree or disagree)? Why? @ -I reviewed and agree with nursing and triage notes Were old charts reviewed (outside hosp., previous admission, EMS record, old EKG, old radiological studies, urgent care reports/EKG's, assisted records)? Report findings @ -No old charts were reviewed Differential Diagnosis (chest pain, altered mental status, abdominal pain women, abdominal pain men, vaginal bleeding, weakness, fever, dyspnea, syncope, headache, dizziness, GI bleed, back pain, seizure, CVA, palpatations, mental health, musculoskeletal)? @ -Not applicable EKG interpreted by me (3pts min.). @Sinus rhythm rate of 85, MT interval 155, QRS duration 105, QTc [address] segment elevation. X-rays interpreted by me (1pt min.). @ -Chest x-ray clear, no acute findings CT interpreted by me (1pt min.). @ -None done U/S interpreted by me (1pt. min.). @ -None done What testing was considered but not performed or refused? (CT, X-rays, U/S, labs)? Why? @ -None What meds were considered but not given or refused? Why? @ -None Did you discuss the management of the patient with other professionals (professionals i.e. [facility] Torres, TIRE DEBEADER, lab, RT, psych nurse, social worker assistant, mold filler, teacher, recreation officer, embedded case manager)? Give summary @ -No Was smoking cessation discussed for >3mins.? @ -No Was critical care preformed (if so, how long)? @ -No Were there social determinants of health that impacted care today? How? (Home lessness, low income, unemployed, alcoholism, drug addiction, transportation, low edu. Level, literacy, decrease access to med. care, usp, rehab)? @ -No Was there de-escalation of care discussed even if they declined (Discuss DNR or withdrawal of care, Hospice)? DNR status @ -No What co-morbidities impacted this encounter? (DM, HTN, Smoking, COPD, CAD, Cancer, CVA, ARF, Chemo, Hep., AIDS, mental health diagnosis, sleep apnea, morbid obesity)? @ -Alcohol abuse, recent troponin elevation NSTEMI] Was patient admitted / discharged? Hospital course, mention meds given and route, prescriptions, significant lab abnormalities, going to OR and other pertinent info. @ -47 49-year-old male presenting to the emergency department at the request of [facility] for completion of his workup for recent NSTEMI. No further chest pain. He is intoxicated upon arrival, serum alcohol 177. Troponin is downtrending, 0.075 from 0.195. EKG is sinus without ST segment elevation. Chest x-ray is clear. The remainder of his laboratory testing is unremarkable. Patient given an aspirin and will be admitted to observation for cardiac consultation, repeat troponin levels will be obtained. Patient is also placed on benzodiazepine for withdrawal. Undiagnosed new problem with uncertain prognosis? @ -No Drug Therapy requiring intensive monitoring for toxicity (Heparin, Nitro, Insulin, Cardizem)? @ -No Were any procedures done? @ -No Diagnosis/symptom? @Alcohol intoxication, troponin elevation Acute, or Chronic, or Acute on Chronic? @ -Acute Uncomplicated (without systemic symptoms) or Complicated (systemic symptoms)? @ -Default Side effects of treatment? @ -No Exacerbation, Progression, or Severe Exacerbation? @ -No Poses a threat to life or bodily function? How? (Chest pain, USA, CT, pneumonia, PE, COPD, DKA, ARF, appy, cholecystitis, CVA, Diverticulitis, Homicidal, Suicidal, threat to staff... and all critical care pts) @ -Yes, DTs, ACS - Lab Data Result diagrams: 01/26/25 18:24 01/26/25 18:24 Lab Results 01/26/25 01/26/25 01/26/25 Range/Units 18:24 18:24 19:44 WBC 7.3 (3.8-10.6) k/uL RBC 4.03 L (4.30-5.90) m/uL Hgb 12.4 L (13.0-17.5) gm/dL Hct 38.3 L (39.0-53.0) % MCV 95.0 (80.0-100.0) fL MCH 30.7 (25.0-35.0) pg MCHC 32.3 (31.0-37.0) g/dL RDW 16.1 H (11.5-15.5) % Plt Count 128 L (150-450) k/uL MPV 8.8 Neutrophils % 64 % Lymphocytes % 22 % Monocytes % 5 % Eosinophils % 6 % Basophils % 1 % Neutrophils # 4.7 (1.3-7.7) k/uL Lymphocytes # 1.6 (1.0-4.8) k/uL Monocytes # 0.4 (0-1.0) k/uL Eosinophils # 0.4 (0-0.7) k/uL Basophils # 0.0 (0-0.2) k/uL Anisocytosis Slight PT 11.6 (10.0-12.5) sec INR 1.1 (<1.2) APTT 19.7 L (22.0-30.0) sec Sodium 137 (137-145) mmol/L Potassium 3.8 (3.5-5.1) mmol/L Chloride 105 (98-107) mmol/L Carbon Dioxide 23 (22-30) mmol/L Anion Gap 9 mmol/L BUN 4 L (9-20) mg/dL Creatinine 0.60 L (0.66-1.25) mg/dL Est GFR (CKD-EPI)AfAm >90 (>60 ml/min/1.73 sqM) Est GFR (CKD-EPI)NonAf >90 (>60 ml/min/1.73 sqM) Glucose 103 H (74-99) mg/dL Calcium 8.9 (8.4-10.2) mg/dL Magnesium 1.7 (1.6-2.3) mg/dL Total Bilirubin 1.0 (0.2-1.3) mg/dL AST 52 (17-59) U/L ALT 26 (4-49) U/L Alkaline Phosphatase 96 (38-126) U/L Troponin I (0.000-0.034) ng/mL Total Protein 7.0 (6.3-8.2) g/dL Albumin 3.8 (3.5-5.0) g/dL Serum Alcohol 177 mg/dL 01/26/25 Range/Units 19:44 WBC (3.8-10.6) k/uL RBC (4.30-5.90) m/uL Hgb (13.0-17.5) gm/dL Hct (39.0-53.0) % MCV (80.0-100.0) fL MCH (25.0-35.0) pg MCHC (31.0-37.0) g/dL RDW (11.5-15.5) % Plt Count (150-450) k/uL MPV Neutrophils % % Lymphocytes % % Monocytes % % Eosinophils % % Basophils % % Neutrophils # (1.3-7.7) k/uL Lymphocytes # (1.0-4.8) k/uL Monocytes # (0-1.0) k/uL Eosinophils # (0-0.7) k/uL Basophils # (0-0.2) k/uL Anisocytosis PT (10.0-12.5) sec INR (<1.2) APTT (22.0-30.0) sec Sodium (137-145) mmol/L Potassium (3.5-5.1) mmol/L Chloride (98-107) mmol/L Carbon Dioxide (22-30) mmol/L Anion Gap mmol/L BUN (9-20) mg/dL Creatinine (0.66-1.25) mg/dL Est GFR (CKD-EPI)AfAm (>60 ml/min/1.73 sqM) Est GFR (CKD-EPI)NonAf (>60 ml/min/1.73 sqM) Glucose (74-99) mg/dL Calcium (8.4-10.2) mg/dL Magnesium (1.6-2.3) mg/dL Total Bilirubin (0.2-1.3) mg/dL AST (17-59) U/L ALT (4-49) U/L Alkaline Phosphatase (38-126) U/L Troponin I 0.075 H* (0.000-0.034) ng/mL Total Protein (6.3-8.2) g/dL Albumin (3.5-5.0) g/dL Serum Alcohol mg/dL Disposition Clinical Impression: Alcoholic intoxication, Troponin level elevated Disposition: ADMITTED IP TO THIS HOSP Condition: Stable Is patient prescribed a controlled substance at d/c from ED?: No Referrals: Lucas Blake MD [Primary Care Provider] - 1-2 days Time of Disposition: 21:07
[2025-01-26] MEDS: LORazepam 2 MG/ML INJ IV STA ×2 (19:57→22:00)
--- NOTE | 2025-01-26 20:02 | XR ---
EXAMINATION TYPE: XR chest 2V DATE OF EXAM: 01/26/2025 7:52 PM COMPARISON: Chest radiographs from 01/24/2025 CLINICAL INDICATION: Male, 49 years old with history of Chest Pain; TECHNIQUE: XR chest 2V Frontal and lateral views of the chest. FINDINGS: Lungs/Pleura: There is no evidence of pleural effusion, focal consolidation, or pneumothorax. Pulmonary vascularity: Unremarkable. Heart/mediastinum: Cardiomediastinal silhouette is unremarkable. Musculoskeletal: No acute osseous pathology. IMPRESSION: No acute cardiopulmonary disease/process. [facility], , 01/26/2025 7:59 PM
[2025-01-26 20:17] LABS: INR 1.1 (<1.2); Prothrombin Time 11.6 sec (10.0-12.5)
[2025-01-26 20:19] LABS: Partial Thromboplastin Time 19.7 sec (22.0-30.0)
[2025-01-26] MEDS ORDERED: NALOXONE 0.4 MG/ML 1 ML VIAL IV PRN (21:01)
[2025-01-26] MEDS: THIAMINE 100 MG/ML 2 ML VIAL IM STA (21:12)
[2025-01-26] MEDS: LORazepam 2 MG/ML INJ IV PRN (21:14)
[2025-01-26] MEDS: ASPIRIN 325 MG TAB PO STA (21:46)
[2025-01-26] MEDS: SODIUM CHLORIDE 0.9% 1,000 ML IV SCH (22:02)
[2025-01-27] MEDS: THIAMINE 100 MG TAB PO SCH (08:16)
[2025-01-27] MEDS: LORazepam 2 MG/ML INJ IV PRN ×2 (08:55→20:31)
--- NOTE | 2025-01-27 13:32 | P.CRDCN ---
History of Present Illness Consult date: 01/27/25 Reason for Consult (text): Elevated troponin History of present illness: This is a 49-year-old male with past medical history of hypertension, seizure disorder, alcohol abuse, marijuana use. We have been asked to evaluate the patient for NSTEMI. Patient states that a few months ago, he was seen at [facility] for chest pain and thought he had an ND at that time and had a cardiac cath done. Patient was unsure if he had a stent placed but has not been placed on antiplatelet medication. Patient presented to the hospital on 01/24 with what he called anxiety in his chest that then turns into tightness in his chest that has been going on for about 1 month. He did have nausea when he had the pain along with shortness of breath and sweats. Patient had elevated troponins but in a flat pattern and he was admitted to the cardiac stepdown unit. However, patient signed out AMA the following morning. He returned to the emergency cent er on 01/26 but his alcohol level was high. Patient states after he left here, we went by the water and got drunk. Patient states that he is run down, shaking. He currently denies chest pain. Regarding alcohol, patient drinks 1 L of vodka per day. He uses marijuana 2 to 3 days/week. Regarding his home medications. He states he has not taken any a while. He currently has no medications listed on his home list. Blood pressure 138/81, heart rate 79, pulse ox 96% on room air. Patient is seen today in the emergency center waiting for a bed on the cardiac stepdown unit. Patient has been started on CIWA protocol. -EKG: Sinus rhythm -Chest x-ray: No acute process. -Laboratory studies: Hemoglobin 12.4, platelet count 128. BUN 4 creatinine 0.6. Troponin 0.075, 0.060, 0.055. Serum alcohol level 177. Lipid panel from previous admission revealed triglycerides 43, cholesterol 135, LDL 38, HDL 88. -Home cardiac medications: None -Echocardiogram performed 01/26/2025: EF 60%, mild concentric LVH, mild tricuspid regurgitation, epicardial fat. Normal RV size and systolic function. Review Of Systems: At the time of my exam: CONSTITUTIONAL: Denies fever or chills. HEENT: Denies blurred vision, vision changes, or eye pain. Denies hemoptysis CARDIOVASCULAR: Reports chest pain. Denies orthopnea. Denies PND. Denies palpitations RESPIRATORY: Denies shortness of breath. GASTROINTESTINAL: Denies abdominal pain. Denies nausea or vomiting. HEMATOLOGIC: Denies bleeding disorders. GENITOURINARY: Denies any blood in urine. SKIN: Denies puritis. Denies rash. Physical examination: Gen: This is a 49-year-old male in no acute distress VS: reviewed HEENT: Head is atraumatic, normocephalic. Pupils equal, round. Sclerae is anicteric. NECK: Supple. No JVD. LUNGS: Clear to auscultation. No wheezes or rhonchi. No intercostal retractions. HEART: Regular rate and rhythm. No murmur. ABDOMEN: Soft No tenderness. EXTREMITIES: No pedal edema. No calf tenderness. NEUROLOGICAL: Patient is awake, alert and oriented x3. Assessment: Chronic elevation of troponin with a flat pattern not indicative of acute coronary syndrome Alcohol use of 1 L of vodka daily Marijuana use Thrombocytopenia secondary to alcohol abuse Morbid obesity with BMI 41 Plan: Obtain records from [facility] where he had a recent cardiac workup done according to the patient Start patient on metoprolol succinate 12.5 mg daily Patient is a poor interventional candidate due to noncompliance, alcohol abuse. Unless patient develops acute angina symptoms, no plan for cardiac catheterization at this time. Further recommendations to follow based upon clinical course Thank you kindly for this consultation. Nurse practitioner note has been reviewed, I agree with documented findings and plan of care. Patient was seen and examined. Past Medical History Past Medical History: Chest Pain / Angina, Hypertension, Seizure Disorder History of Any Multi-Drug Resistant Organisms: None Reported Past Surgical History: No Surgical Hx Reported Past Anesthesia/Blood Transfusion Reactions: No Reported Reaction Past Psychological History: Anxiety, Depression, PTSD Smoking Status: Never smoker Past Alcohol Use History: Daily Past Drug Use History: None Reported Medications and Allergies Home Medications Medication Instructions Recorded Confirmed Type Aspirin 81 mg PO DIRECTED 01/26/25 01/26/25 History Atorvastatin [Lipitor] 40 mg PO DIRECTED 01/26/25 01/26/25 History Allergies Allergy/AdvReac Type Severity Reaction Status Date / Time Penicillins Allergy Rash/Hives/ Verified 01/26/25 19:41 Anaphylaxis Physical Exam Vitals: Vital Signs Temp Pulse Resp BP Pulse Ox 01/27/25 02:55 79 19 138/81 96 01/27/25 01:53 84 18 95 01/27/25 00:37 85 18 95 01/27/25 00:03 85 18 01/26/25 22:45 85 18 01/26/25 21:43 85 20 121/66 95 01/26/25 19:44 91 15 120/54 96 01/26/25 17:50 97.7 F 85 16 118/71 95 Intake and Output 01/26/25 01/27/25 01/27/25 22:59 06:59 14:59 Other: Weight 131.542 kg Results 01/26/25 18:24 01/26/25 18:24 Cardiac Enzymes 01/26/25 01/26/25 01/26/25 Range/Units 18:24 19:44 23:06 AST 52 (17-59) U/L Troponin I 0.075 H* 0.060 H* (0.000-0.034) ng/mL 01/27/25 Range/Units 03:25 AST (17-59) U/L Troponin I 0.055 H* (0.000-0.034) ng/mL Coagulation 01/26/25 Range/Units 19:44 PT 11.6 (10.0-12.5) sec APTT 19.7 L (22.0-30.0) sec CBC 01/26/25 Range/Units 18:24 WBC 7.3 (3.8-10.6) k/uL RBC 4.03 L (4.30-5.90) m/uL Hgb 12.4 L (13.0-17.5) gm/dL Hct 38.3 L (39.0-53.0) % Plt Count 128 L (150-450) k/uL Comprehensive Metabolic Panel 01/26/25 Range/Units 18:24 Sodium 137 (137-145) mmol/L Potassium 3.8 (3.5-5.1) mmol/L Chloride 105 (98-107) mmol/L Carbon Dioxide 23 (22-30) mmol/L BUN 4 L (9-20) mg/dL Creatinine 0.60 L (0.66-1.25) mg/dL Glucose 103 H (74-99) mg/dL Calcium 8.9 (8.4-10.2) mg/dL AST 52 (17-59) U/L ALT 26 (4-49) U/L Alkaline Phosphatase 96 (38-126) U/L Total Protein 7.0 (6.3-8.2) g/dL Albumin 3.8 (3.5-5.0) g/dL Current Medications Generic Name Dose Route Start Last Admin Trade Name Freq PRN Reason Stop Dose Admin Acetaminophen 650 mg 01/26/25 21:01 Acetaminophen Tab 325 Mg Tab PO Q6HR PRN Mild Pain or Fever > 100.5 Sodium Chloride 1,000 mls @ 75 mls/hr 01/26/25 21:15 01/26/25 22:02 Saline 0.9% IV 75 mls/hr .[id number] LYDIA Administration Lorazepam 1 mg 01/26/25 21:01 01/27/25 03:37 Lorazepam 2 Mg/Ml Inj IV 1 mg Q1HR PRN Administration CIWA 10 to 15 Lorazepam 1 mg 01/26/25 21:01 Lorazepam 2 Mg/Ml Inj IV Q2HR PRN CIWA 8 or 9 Lorazepam 2 mg 01/26/25 21:01 Lorazepam 2 Mg/Ml Inj IV 01/28/25 21:01 Q10M PRN CIWA 16 or higher Naloxone HCl 0.2 mg 01/26/25 21:01 Naloxone 0.4 Mg/Ml 1 Ml Vial IV Q2M PRN Opioid Reversal Ondansetron HCl 4 mg 01/26/25 21:05 Ondansetron 4 Mg/2 Ml Vial IVP Q6HR PRN Nausea And Vomiting Thiamine HCl 100 mg 01/27/25 09:00 Thiamine 100 Mg Tab PO DAILY LYDIA Intake and Output 01/26/25 01/27/25 01/27/25 22:59 06:59 14:59 Other: Weight 131.542 kg 01/26/25 18:24 01/26/25 18:24
--- NOTE | 2025-01-27 14:01 | P.HPIM ---
History of Present Illness H&P Date: 01/27/25 Chief Complaint: Alcohol abuse Patient is a 49 year old male with past medical history of of angina, cardiac catheterization, hypertension, seizure disorderwas sent to the ED from [facility] due to alcohol intoxication. Patient was trying to get himself admitted to [facility] 3 days ago which is when he had chest pain. He was sent from [facility] to the ED and was admitted here for the past 3 days. At the time his troponin levels were elevated. He was suspected to have a NSTEMI and was started on a heparin drip as well as nitro drip. He also admitted to suicidal thoughts upon admission to the ED on 01/24/2025, psychiatry was consulted and a sitter was placed at bedside. The patient was slightly upset about the sitter in his room. He was unable to be encouraged to stay and left AGAINST MEDICAL ADVICE yesterday. After leaving he tried to go to [facility] for detoxification. They found him to be intoxicated and given his recent cardiac issue he was sent back to the ED here. Currently the patient denies chest pain. He admits his last drink was yesterday. He usually drinks 1 L of vodka per day. Denies fever, chills, shortness of breath, cough, chest pain, palpitations, abdominal pain, nausea, vomiting, hematuria, dysuria, hematochezia, melena, headache, slurred speech, numbness, tingling, dizziness, lightheadedness, blurred vision, double vision. ED documentation reviewed. In the ED patient was treated with lorazepam, 0.9 normal saline, thiamine and diazepam. Vitals on admission T 97.7 F, VA 85 bpm, 16, BP 118/71, oxygen saturation 95% on room air EKG independently interpreted as sinus rhythm, rate 85 bpm, QTc 428 ms Chest x-ray shows no acute cardiopulmonary disease/process Labs on admission show WBC 7.3, hemoglobin 12.4, RDW 16.1, platelet count 128, APTT 19.7, sodium 137, potassium 3.8, BUN 4, creatinine 0.6, total bilirubin 1, AST 52, ALT 26, ALP 96, magnesium 1.7 Troponin I 0.075, 0.060, 0.055 Serum alcohol level 177 Review of systems: Pertinent positives and negatives as discussed in HPI, a complete review of systems was performed and all other systems are negative. Social history: Tobacco: Never smoker Alcohol: Daily Recreational drugs: Denies use Travel: No recent travel history Sick contacts: None Physical examination: Vital signs reviewed General: nontoxic, no distress, appears at stated age Derm: warm, dry, intact Head: atraumatic, normocephalic, symmetric Eyes: EOMI, anicteric sclera Mouth: no lip lesion, mucus membranes moist Cardiovascular: S1 S2 reg, no murmur Lungs: CTA bilateral, no rhonchi, no rales, no accessory muscle use Abdominal: soft, non-tender to palpation Extremities: No cyanosis, clubbing, or pedal edema. Neuro: Alert, Oriented, Gross neurological examination did not reveal any focal deficits. Psych: well appearing, appropriate affect Assessment/Plan: Patient is a 49 year old male with past medical history of of angina, cardiac catheterization, hypertension, seizure disorder was sent to the ED from [facility] due to alcohol intoxication. Active: #. Alcohol withdrawal Serum alcohol 177 Patient received diazepam 2 mg once Lorazepam 1 mg IV every 2 hours as needed for CIWA 8 or 9, Lorazepam 1 mg IV every hour as needed for CIWA 10-15, Lorazepam 2 mg IV Q10M as needed for CIWA 16 or higher Continue Librium 25 mg PO TID Continue Thiamine 100 mg PO daily Assess CIWA scale #. Elevated troponin, r/o ACS EKG independently interpreted as sinus rhythm, rate 85 bpm, QTc 428 ms Troponin I 0.075, 0.060, 0.055 Lipid panel shows triglycerides 43, cholesterol 135, LDL 38.4, VLDL 8.62, HDL 88 Echocardiogram done on 01/25/2025 shows EF 60 to 65%, mild concentric LVH, mild TR, epicardial fat Started on metoprolol 12.5 mg PO daily Continue telemetry monitoring Cardiology consulted, recommend elevated troponin with a flat pattern not indicative of acute coronary syndrome, patient is a poor interventional cand idate due to noncompliance, alcohol abuse. Unless patient develops acute angina symptoms, no plan for cardiac catheterization at this time. #. Thrombocytopenia, likely heparin induced Platelet count 128 Patient was on heparin drip for past 3 days for suspected NSTEMI, patient left AMA before further evaluation Monitor CBC #. Nausea and vomiting Continue ondansetron 4 mg IVP every 6 hours as needed F: 0.9 normal saline at 75 ml/hr E: Replete as required N: Heart healthy diet DVT prophylaxis: SCD GI prophylaxis: Pantoprazole 40 mg PO daily The patient is admitted with an anticipated more than 2 midnight stay for evaluation of chest pain CODE STATUS: FULL CODE Discussed with: Patient Anticipated discharge place: Home Past Medical History Past Medical History: Chest Pain / Angina, Hypertension, Seizure Disorder History of Any Multi-Drug Resistant Organisms: None Reported Past Surgical History: No Surgical Hx Reported Past Anesthesia/Blood Transfusion Reactions: No Reported Reaction Past Psychological History: Anxiety, Depression, PTSD Smoking Status: Never smoker Past Alcohol Use History: Daily Past Drug Use History: None Reported Medications and Allergies Home Medications Medication Instructions Recorded Confirmed Type Aspirin 81 mg PO DIRECTED 01/26/25 01/26/25 History Atorvastatin [Lipitor] 40 mg PO DIRECTED 01/26/25 01/26/25 History Allergies Allergy/AdvReac Type Severity Reaction Status Date / Time Penicillins Allergy Rash/Hives/ Verified 01/26/25 19:41 Anaphylaxis Physical Exam Vitals: Vital Signs Temp Pulse Resp BP Pulse Ox 01/27/25 09:36 89 18 01/27/25 08:13 92 18 01/27/25 08:08 98 01/27/25 07:50 98.8 F 94 18 128/73 94 L 01/27/25 02:55 79 19 138/81 96 01/27/25 01:53 84 18 95 01/27/25 00:37 85 18 95 01/27/25 00:03 85 18 01/26/25 22:45 85 18 01/26/25 21:43 85 20 121/66 95 01/26/25 19:44 91 15 120/54 96 01/26/25 17:50 97.7 F 85 16 118/71 95 Intake and Output 01/26/25 01/27/25 01/27/25 22:59 06:59 14:59 Other: Weight 131.542 kg Results CBC & Chem 7: 01/26/25 18:24 01/26/25 18:24 Labs: Abnormal Lab Results - Last 24 Hours (Table) 01/26/25 01/26/25 01/26/25 Range/Units 18:24 18:24 19:44 RBC 4.03 L (4.30-5.90) m/uL Hgb 12.4 L (13.0-17.5) gm/dL Hct 38.3 L (39.0-53.0) % RDW 16.1 H (11.5-15.5) % Plt Count 128 L (150-450) k/uL APTT 19.7 L (22.0-30.0) sec BUN 4 L (9-20) mg/dL Creatinine 0.60 L (0.66-1.25) mg/dL Glucose 103 H (74-99) mg/dL Troponin I (0.000-0.034) ng/mL 01/26/25 01/26/25 01/27/25 Range/Units 19:44 23:06 03:25 RBC (4.30-5.90) m/uL Hgb (13.0-17.5) gm/dL Hct (39.0-53.0) % RDW (11.5-15.5) % Plt Count (150-450) k/uL APTT (22.0-30.0) sec BUN (9-20) mg/dL Creatinine (0.66-1.25) mg/dL Glucose (74-99) mg/dL Troponin I 0.075 H* 0.060 H* 0.055 H* (0.000-0.034) ng/mL
[2025-01-27] MEDS: METOPROLOL SUCCINATE (ER) 25 MG TAB.ER.24H PO SCH (14:04)
[2025-01-27] MEDS: chlordiazePOXIDE 25 MG CAP PO SCH (14:04)
[2025-01-27] MEDS: ONDANSETRON 4 MG/2 ML VIAL IVP PRN (20:31)
[2025-01-27] MEDS: ACETAMINOPHEN TAB 325 MG TAB PO PRN (20:31)
[2025-01-28 00:43] VITALS: RESP 18; TEMP 98.2
[2025-01-28 08:19] LABS: Anisocytosis Slight; HCT 39.3 % (39.0-53.0); MCH 31.9 pg (25.0-35.0); MCV 96.4 fL (80.0-100.0); Mean Platelet Volume 10.1; Platelet Count 102 k/uL (150-450); RBC 4.07 m/uL (4.30-5.90); RDW 16.6 % (11.5-15.5); WBC 8.4 k/uL (3.8-10.6)
[2025-01-28 09:38] VITALS: BP 125/64; PULSE 68
[2025-01-28] MEDS: LORazepam 2 MG/ML INJ IV PRN (09:54)
--- NOTE | 2025-01-28 13:41 | P.PN ---
Subjective Progress Note Date: 01/28/25 Reason for Consult (text): Elevated troponin History of present illness: This is a 49-year-old male with past medical history of hypertension, seizure disorder, alcohol abuse, marijuana use. We have been asked to evaluate the patient for NSTEMI. Patient states that a few months ago, he was seen at [facility] for chest pain and thought he had an AL at that time and had a cardiac cath done. Patient was unsure if he had a stent placed but has not been placed on antiplatelet medication. Patient presented to the hospital on 01/24 with what he called anxiety in his chest that then turns into tightness in his chest that has been going on for about 1 month. He did have nausea when he had the pain along with shortness of breath and sweats. Patient had elevated troponins but in a flat pattern and he was admitted to the cardiac stepdown unit. However, patient signed out AMA the following morning. He returned to the emergency center on 01/26 but his alcohol level was high. Patient states after he left here, we went by the water and got drunk. Patient states that he is run down, shaking. He currently denies chest pain. Regarding alcohol, patient drinks 1 L of vodka per day. He uses marijuana 2 to 3 days/week. Regarding his home medications. He states he has not taken any a while. He currently has no medications listed on his home list. Blood pressure 138/81, heart rate 79, pulse ox 96% on room air. Patient is seen today in the emergency center waiting for a bed on the cardiac stepdown unit. Patient has been started on CIWA protocol. -EKG: Sinus rhythm -Chest x-ray: No acute process. -Laboratory studies: Hemoglobin 12.4, platelet count 128. BUN 4 creatinine 0.6. Troponin 0.075, 0.060, 0.055. Serum alcohol level 177. Lipid panel from previous admission revealed triglycerides 43, cholesterol 135, LDL 38, HDL 88. -Home cardiac medications: None -Echocardiogram performed 01/26/2025: EF 60%, mild concentric LVH, mild tricuspid regurgitation, epicardial fat. Normal RV size and systolic function. 01/28 Patient seen and examined on the cardiac stepdown unit. Patient states that his breathing is okay. He states today he has some chest pressure. We still are waiting for medical records from [facility]. Patient states that he had a cardiac cath done there but did not have stents done. He has been started on Toprol XL. On his last hospitalization, we ruled out PE with normal D-dimer. Physical examination: Gen: This is a 49-year-old male in no acute distress VS: reviewed HEENT: Head is atraumatic, normocephalic. Pupils equal, round. Sclerae is anicteric. NECK: Supple. No JVD. LUNGS: Clear to auscultation. No wheezes or rhonchi. No intercostal retractions. HEART: Regular rate and rhythm. No murmur. ABDOMEN: Soft No tenderness. EXTREMITIES: No pedal edema. No calf tenderness. NEUROLOGICAL: Patient is awake, alert and oriented x3. Assessment: Chronic elevation of troponin with a flat pattern not indicative of acute coronary syndrome Alcohol use of 1 L of vodka daily Marijuana use Thrombocytopenia secondary to alcohol abuse Morbid obesity with BMI 41 Plan: Obtain records from [facility] where he had a recent cardiac workup done according to the patient Start patient on metoprolol succinate 12.5 mg daily Patient is a poor interventional candidate due to noncompliance, alcohol abuse. Unless patient develops acute angina symptoms, no plan for cardiac catheterization at this time. Further recommendations to follow based upon clinical course Nurse practitioner note has been reviewed, I agree with documented findings and plan of care. Patient was seen and examined. Objective - Vital Signs Vital signs: Vital Signs Temp 98.2 F 01/27/25 23:05 Pulse 62 01/28/25 04:10 Resp 18 01/28/25 04:10 BP 120/79 01/28/25 04:10 Pulse Ox 97 01/28/25 04:10 FiO2 Intake & Output 01/27/25 01/28/25 01/28/25 18:59 06:59 18:59 Output Total 500 Balance -500 Weight 131.5 kg Output: Urine 500 - Labs CBC & Chem 7: 01/28/25 06:57 01/26/25 18:24 Labs: Abnormal Lab Results - Last 24 Hours (Table) 01/28/25 Range/Units 06:57 RBC 4.07 L (4.30-5.90) m/uL RDW 16.6 H (11.5-15.5) % Plt Count 102 L (150-450) k/uL
--- NOTE | 2025-01-29 05:15 | P.DS ---
Providers Date of admission: 01/26/25 21:01 Expected date of discharge: 01/28/25 Attending physician: Bipin Burns Consults: 01/26/25 21:01 Consult Physician Routine Consulting Provider: Sundeep Bright Consult Reason/Comments: troponin elevation Do you want consulting provider notified?: Yes Primary care physician: Lucas Blake MD Hospital Course: Final diagnosis Alcohol withdrawal Elevated troponin, ruled out ACS Thrombocytopenia, likely heparin induced as well as a component of continued ongoing alcohol abuse Nausea and vomiting secondary to alcoholic gastritis Morbid obesity with a BMI of 41.6 GI prophylaxis DVT prophylaxis Full code Discharge disposition Patient left AGAINST MEDICAL ADVICE. Risk versus benefits were explained and patient proceeded to leave with a steady gait. Patient signed paperwork. Patient to follow-up with primary care provider Dr. Blake in the outpatient setting. Total time taken is greater than 35 minutes. Hospital course This is a 49-year-old male who was recently admitted multiple times recently for alcohol intoxication. Patient apparently went to [facility] and reported having issues with his heart and sent here for evaluation. Patient was evaluated by cardiology with no plans at this time and ACS ruled out recommending outpatient follow-up. Patient maintained on CIWA protocol and Librium taper during hospitalization. Per nursing staff patient became upset and wanted to leave and left AGAINST MEDICAL ADVICE. Please refer to other consultation notes for further HPI. Patient had been attempting to contact [facility] to discuss discharge planning. Currently no reports of chest pain, shortness of breath, or palpitations. Patient is afebrile. No reports of nausea or vomiting and patient is tolerating diet. Left AGAINST MEDICAL ADVICE high risk for readmissions and patient has had multiple visits to the ER here in 3 visits over the course of 2 days and had been admitted. The impression and plan of care has been dictated by Gerda Snow, Nurse Practitioner as directed. Dr. Lisa MD I have performed a history and examination and MDM of this patient, discussed the same with the dictator, and agree with the dictator's assessment and plan as written ,documented as a scribe. Based on total visit time, I have performed more than 50% of the visit. Patient Condition at Discharge: Stable Plan - Discharge Summary Discharge Rx Participant: Yes New Discharge Prescriptions: No Action Aspirin 81 mg PO DIRECTED Atorvastatin [Lipitor] 40 mg PO DIRECTED Gabapentin [Neurontin] 400 mg PO TID Discharge Medication List Aspirin 81 mg PO DIRECTED 01/26/25 [History] Atorvastatin [Lipitor] 40 mg PO DIRECTED 01/26/25 [History] Gabapentin [Neurontin] 400 mg PO TID 01/28/25 [History] Follow up Appointment(s)/Referral(s): Lucas Blake MD [Primary Care Provider] - 1-2 days Discharge Disposition: LEFT AGAINST MEDICAL ADVICE
== END 2025-01-28 12:05 | disposition left against medical advice (07) ==
LOC: EC 17:42 → 3SCARD 21:01
PROVIDERS: ADMIT Hospitalist; ATTEND Hospitalist
DX: F10.239 Alcohol dependence with withdrawal, unspecified (principal); R79.89 Other specified abnormal findings of blood chemistry; K29.20 Alcoholic gastritis without bleeding; F10.229 Alcohol dependence with intoxication, unspecified; Y90.6 Blood alcohol level of 120-199 mg/100 ml; I07.1 Rheumatic tricuspid insufficiency; D69.59 Other secondary thrombocytopenia; I10 Essential (primary) hypertension; G40.909 Epilepsy, unspecified, not intractable, without status epilepticus; T50.906A Underdosing of unspecified drugs, medicaments and biological substances, initial encounter; Z91.128 Patient's intentional underdosing of medication regimen for other reason; F12.90 Cannabis use, unspecified, uncomplicated; R45.851 Suicidal ideations; F41.9 Anxiety disorder, unspecified; E66.01 Morbid (severe) obesity due to excess calories; Z68.41 Body mass index [BMI] 40.0-44.9, adult; Z79.82 Long term (current) use of aspirin; Z79.899 Other long term (current) drug therapy; Z88.0 Allergy status to penicillin; Z74.3 Need for continuous supervision; Z53.29 Procedure and treatment not carried out because of patient's decision for other reasons
CPT/HCPCS: 96376 ×4; 96372; 96374; 96375; 99285; 36415; 93005; 80053; 83735; 84484 ×2; 85025; 85027; 85610; 85730; 80320; 71046; G0378 ×3; J2060 ×3; J3411; J3360; J2405

== ENCOUNTER 2025-01-28 15:20 | Observation (INO) | payer OTHER ==
--- NOTE | 2025-01-28 16:46 | ED ---
General Adult HPI - General Chief complaint: Chest Pain Stated complaint: Chest tightness Time Seen by Provider: 01/28/25 15:48 Source: patient, RN notes reviewed Mode of arrival: ambulatory Limitations: no limitations - History of Present Illness Initial comments: 49-year-old male presents emergency department for evaluation of chest tightness. Patient states that this has been an ongoing issue for multiple days. He notes that the pain continues. Denies shortness of breath, leg swelling. He was admitted here twice and left AMA both times. He is supposed to go to [facility]. - Related Data Home Medications Medication Instructions Recorded Confirmed Aspirin 81 mg PO DIRECTED 01/26/25 01/26/25 Atorvastatin [Lipitor] 40 mg PO DIRECTED 01/26/25 01/26/25 Gabapentin [Neurontin] 400 mg PO TID 01/28/25 01/28/25 Allergies Allergy/AdvReac Type Severity Reaction Status Date / Time Penicillins Allergy Rash/Hives/ Verified 01/28/25 15:29 Anaphylaxis Review of Systems ROS Statement: Those systems with pertinent positive or pertinent negative responses have been documented in the HPI. ROS Other: All systems not noted in ROS Statement are negative. Past Medical History Past Medical History: Chest Pain / Angina, Hypertension, Seizure Disorder History of Any Multi-Drug Resistant Organisms: None Reported Past Surgical History: No Surgical Hx Reported Past Anesthesia/Blood Transfusion Reactions: No Reported Reaction Past Psychological History: Anxiety, Depression, PTSD Smoking Status: Never smoker Past Alcohol Use History: Abuse, Daily Past Drug Use History: None Reported General Exam Limitations: no limitations General appearance: alert, in no apparent distress Head exam: Present: atraumatic, normocephalic, normal inspection Eye exam: Present: normal appearance, PERRL, EOMI. Absent: scleral icterus, conjunctival injection, periorbital swelling Respiratory exam: Present: normal lung sounds bilaterally. Absent: respiratory distress, wheezes, rales, rhonchi, stridor Cardiovascular Exam: Present: regular rate, normal rhythm, normal heart sounds. Absent: systolic murmur, diastolic murmur, rubs, gallop, clicks Extremities exam: Present: normal inspection, full ROM, normal capillary refill. Absent: tenderness, pedal edema, joint swelling, calf tenderness Back exam: Present: normal inspection Neurological exam: Present: alert, oriented X3 Psychiatric exam: Present: normal affect, normal mood Skin exam: Present: warm, dry, intact, normal color. Absent: rash Course Vital Signs 01/28/25 01/28/25 01/28/25 15:23 17:14 19:12 Temperature 98.1 F Pulse Rate 88 74 84 Respiratory 18 19 19 Rate Blood Pressure 114/73 141/87 117/59 O2 Sat by Pulse 97 96 99 Oximetry Medical Decision Making - Medical Decision Making Was pt. sent in by a medical professional or institution (, PA, [facility], urgent care, hospital, or jail...) When possible be specific @ -No Did you speak to anyone other than the patient for history (EMS, parent, family, police, friend...)? What history was obtained from this source @ -No Did you review nursing and triage notes (agree or disagree)? Why? @ -I reviewed and agree with nursing and triage notes Were old charts reviewed (outside hosp., previous admission, EMS record, old EKG, old radiological studies, urgent care reports/EKG's, jail records)? Report findings @ -No old charts were reviewed Differential Diagnosis (chest pain, altered mental status, abdominal pain women, abdominal pain men, vaginal bleeding, weakness, fever, dyspnea, syncope, headache, dizziness, GI bleed, back pain, seizure, CVA, palpatations, mental health, musculoskeletal)? @ -Differential Chest Pain: Stable Angina, Unstable Angina, STEMI, NSTEMI Aortic Dissection, Pneumothorax, Musculoskeletal, Esophageal Spasm GERD, Cholecystitis, Pancreatitis, Zoster, this is not meant to be an all-inclusive list. EKG interpreted by me (3pts min.). @ -EKG at 1536 shows sinus rhythm rate 83, FL 136, QRS 93, QT/QTc 3 734, X-rays interpreted by me (1pt min.). @ -Chest xr shows no acute process CT interpreted by me (1pt min.). @ -None done U/S interpreted by me (1pt. min.). @ -None done What testing was considered but not performed or refused? (CT, X-rays, U/S, labs)? Why? @ -None What meds were considered but not given or refused? Why? @ -None Did you discuss the management of the patient with other professionals (professionals i.e. , MARITZA, [facility], lab, RT, psych nurse, health social work professor, computer engineer, teacher, third officer, geriatric case manager)? Give summary @ -Case discussed with Ofe Cottrell who is accepting of the admission Was smoking cessation discussed for >3mins.? @ -No Was critical care preformed (if so, how long)? @ -No Were there social determinants of health that impacted care today? How? (Homelessness, low income, unemployed, alcoholism, drug addiction, transportation, low edu. Level, literacy, decrease access to med. care, snf, rehab)? @ -No Was there de-escalation of care discussed even if they declined (Discuss DNR or withdrawal of care, Hospice)? DNR status @ -No What co-morbidities impacted this encounter? (DM, HTN, Smoking, COPD, CAD, Cancer, CVA, ARF, Chemo, Hep., AIDS, mental health diagnosis, sleep apnea, morbid obesity)? @ -None Was patient admitted / discharged? Hospital course, mention meds given and route, prescriptions, significant lab abnormalities, going to OR and other perti ne info. @ -Admitted patient presented emergency department for chest discomfort. Repeat labs CBC unactionable, normal coagulation studies, negative troponin x2. Undiagnosed new problem with uncertain prognosis? @ -No Drug Therapy requiring intensive monitoring for toxicity (Heparin, Nitro, Insulin, Cardizem)? @ -No Were any procedures done? @ -No Diagnosis/symptom? @ -Chest pain, alcohol intoxication Acute, or Chronic, or Acute on Chronic? @ -acute Uncomplicated (without systemic symptoms) or Complicated (systemic symptoms)? @ -uncomplicated Side effects of treatment? @ -No Exacerbation, Progression, or Severe Exacerbation? @ -No Poses a threat to life or bodily function? How? (Chest pain, [place], [place], pneumonia, PE, COPD, DKA, ARF, appy, cholecystitis, CVA, Diverticulitis, Homicidal, Suicidal, threat to staff... and all critical care pts) @ -No - Lab Data Result diagrams: 01/28/25 17:06 01/28/25 17:06 Lab Results 01/28/25 01/28/25 01/28/25 Range/Units 17:06 17:06 17:06 WBC 11.0 H (3.8-10.6) k/uL RBC 4.30 (4.30-5.90) m/uL Hgb 13.2 (13.0-17.5) gm/dL Hct 41.3 (39.0-53.0) % MCV 96.0 (80.0-100.0) fL MCH 30.8 (25.0-35.0) pg MCHC 32.1 (31.0-37.0) g/dL RDW 16.6 H (11.5-15.5) % Plt Count 108 L (150-450) k/uL MPV 10.1 Neutrophils % 72 % Lymphocytes % 17 % Monocytes % 5 % Eosinophils % 3 % Basophils % 0 % Neutrophils # 7.9 H (1.3-7.7) k/uL Lymphocytes # 1.9 (1.0-4.8) k/uL Monocytes # 0.5 (0-1.0) k/uL Eosinophils # 0.4 (0-0.7) k/uL Basophils # 0.0 (0-0.2) k/uL Anisocytosis Slight PT 11.4 (10.0-12.5) sec INR 1.0 (<1.2) APTT 23.4 (22.0-30.0) sec Sodium 133 L (137-145) mmol/L Potassium 4.0 (3.5-5.1) mmol/L Chloride 101 (98-107) mmol/L Carbon Dioxide 21 L (22-30) mmol/L Anion Gap 11 mmol/L BUN 6 L (9-20) mg/dL Creatinine 0.60 L (0.66-1.25) mg/dL Est GFR (CKD-EPI)AfAm >90 (>60 ml/min/1.73 sqM) Est GFR (CKD-EPI)NonAf >90 (>60 ml/min/1.73 sqM) Glucose 89 (74-99) mg/dL Calcium 8.9 (8.4-10.2) mg/dL Magnesium 1.5 L (1.6-2.3) mg/dL Total Bilirubin 1.1 (0.2-1.3) mg/dL AST 48 (17-59) U/L ALT 23 (4-49) U/L Alkaline Phosphatase 101 (38-126) U/L Troponin I (0.000-0.034) ng/mL Total Protein 7.6 (6.3-8.2) g/dL Albumin 4.0 (3.5-5.0) g/dL 01/28/25 Range/Units 17:06 WBC (3.8-10.6) k/uL RBC (4.30-5.90) m/uL Hgb (13.0-17.5) gm/dL Hct (39.0-53.0) % MCV (80.0-100.0) fL MCH (25.0-35.0) pg MCHC (31.0-37.0) g/dL RDW (11.5-15.5) % Plt Count (150-450) k/uL MPV Neutrophils % % Lymphocytes % % Monocytes % % Eosinophils % % Basophils % % Neutrophils # (1.3-7.7) k/uL Lymphocytes # (1.0-4.8) k/uL Monocytes # (0-1.0) k/uL Eosinophils # (0-0.7) k/uL Basophils # (0-0.2) k/uL Anisocytosis PT (10.0-12.5) sec INR (<1.2) APTT (22.0-30.0) sec Sodium (137-145) mmol/L Potassium (3.5-5.1) mmol/L Chloride (98-107) mmol/L Carbon Dioxide (22-30) mmol/L Anion Gap mmol/L BUN (9-20) mg/dL Creatinine (0.66-1.25) mg/dL Est GFR (CKD-EPI)AfAm (>60 ml/min/1.73 sqM) Est GFR (CKD-EPI)NonAf (>60 ml/min/1.73 sqM) Glucose (74-99) mg/dL Calcium (8.4-10.2) mg/dL Magnesium (1.6-2.3) mg/dL Total Bilirubin (0.2-1.3) mg/dL AST (17-59) U/L ALT (4-49) U/L Alkaline Phosphatase (38-126) U/L Troponin I 0.025 (0.000-0.034) ng/mL Total Protein (6.3-8.2) g/dL Albumin (3.5-5.0) g/dL Disposition Clinical Impression: Chest pain, Alcohol intoxication Disposition: ADMITTED IP TO THIS [facility] Condition: Stable Is patient prescribed a controlled substance at d/c from ED?: No
[2025-01-28 17:18] LABS: Anisocytosis Slight; Basophils % (A) 0 %; Eosinophils # (A) 0.4 k/uL (0-0.7); Eosinophils % (A) 3 %; HCT 41.3 % (39.0-53.0); HGB 13.2 gm/dL (13.0-17.5); Lymphocytes # (A) 1.9 k/uL (1.0-4.8); Lymphocytes % (A) 17 %; MCH 30.8 pg (25.0-35.0); MCHC 32.1 g/dL (31.0-37.0); Mean Platelet Volume 10.1; Monocytes # (A) 0.5 k/uL (0-1.0); Monocytes % (A) 5 %; Neutrophils # (A) 7.9 k/uL (1.3-7.7); Neutrophils % (A) 72 %; Platelet Count 108 k/uL (150-450); RDW 16.6 % (11.5-15.5)
[2025-01-28 17:30] LABS: ALT 23 U/L (4-49); African American GFR (CKD) >90 (>60 ml/min/1.73 sqM); Anion Gap 11 mmol/L; Blood Urea Nitrogen 6 mg/dL (9-20); Calcium 8.9 mg/dL (8.4-10.2); Carbon Dioxide 21 mmol/L (22-30); Chloride 101 mmol/L (98-107); Glucose 89 mg/dL (74-99); Non-African American GFR(CKD) >90 (>60 ml/min/1.73 sqM); Sodium 133 mmol/L (137-145); Total Bilirubin 1.1 mg/dL (0.2-1.3); Total Protein 7.6 g/dL (6.3-8.2)
--- NOTE | 2025-01-28 17:30 | XR ---
EXAMINATION TYPE: XR chest 2V DATE OF EXAM: 01/28/2025 5:26 PM COMPARISON: Prior chest radiograph 01/26/2025. CLINICAL INDICATION: Male, 49 years old with history of Chest Pain; [facility] TECHNIQUE: XR chest 2V Frontal and lateral views of the chest. FINDINGS: Lungs/Pleura: There is no evidence of pleural effusion, focal consolidation, or pneumothorax. Pulmonary vascularity: Unremarkable. Heart/mediastinum: Cardiomediastinal silhouette is unremarkable. Musculoskeletal: No acute osseous pathology. Other findings: None IMPRESSION: No acute cardiopulmonary disease/process. [facility], , 01/28/2025 5:28 PM
[2025-01-28 17:31] LABS: Partial Thromboplastin Time 23.4 sec (22.0-30.0); Prothrombin Time 11.4 sec (10.0-12.5)
[2025-01-28 17:35] LABS: AST 48 U/L (17-59); Alkaline Phosphatase 101 U/L (38-126); Magnesium 1.5 mg/dL (1.6-2.3)
[2025-01-28] MEDS ORDERED: NALOXONE 0.4 MG/ML 1 ML VIAL IV PRN (20:52)
[2025-01-28] MEDS ORDERED: KETOROLAC 15 MG/ML 1 ML VIAL IVP PRN (20:52)
[2025-01-28] MEDS ORDERED: LORazepam 0.5 MG TAB PO PRN (20:54)
[2025-01-28] MEDS ORDERED: LORazepam 2 MG/ML INJ IV PRN (20:54)
[2025-01-28] MEDS ORDERED: LORazepam 1 MG TAB PO PRN (20:54)
[2025-01-29] MEDS: IBUPROFEN 400 MG TAB PO PRN (01:22)
[2025-01-29] MEDS: LORazepam 1 MG TAB PO PRN ×2 (01:22→09:27)
[2025-01-29] MEDS: LORazepam 2 MG/ML INJ IV PRN ×2 (07:42→17:34)
[2025-01-29] MEDS ORDERED: ONDANSETRON 4 MG/2 ML VIAL IVP PRN (09:23)
[2025-01-29] MEDS: chlordiazePOXIDE 25 MG CAP PO SCH (10:58)
[2025-01-29] MEDS: THIAMINE 100 MG TAB PO SCH (10:58)
[2025-01-29] MEDS: SODIUM CHLORIDE 0.9% 1,000 ML IV SCH (11:09)
[2025-01-29] MEDS: MAGNESIUM SULFATE-D5W PMX 1 GM in DEXTROSE/WATER 1 100ML.BAG IVPB SCH (11:09)
--- NOTE | 2025-01-29 13:58 | P.HPIM ---
History of Present Illness H&P Date: 01/29/25 Chief Complaint: Chest pain Patient is a 49 year old male with past medical history of of angina, cardiac catheterization, hypertension, seizure disorder presented to the ED with chest pain. Patient was trying to get himself admitted to [facility] 1 week ago ago which is when he had chest pain. He was sent from [facility] to the ED and was admitted here. At the time his troponin levels were elevated. He was suspected to have a NSTEMI and was started on a heparin drip as well as nitro drip. He also admitted to suicidal thoughts upon admission to the ED on 2024, psychiatry was consulted and a sitter was placed at bedside. The patient was slightly upset about the sitter in his room. He was unable to be encouraged to stay and left AGAINST MEDICAL ADVICE yesterday. After leaving he tried to go to [facility] for detoxification. They found him to be intoxicated and given his recent cardiac issue he was sent back to the ED here. Patient was admitted again for alcohol intoxication, but he denied any chest pain and ACS was ruled out. He then left A again the next day. The patient presented to the ED yesterday, third time in the past week, for chest pain. He stated that this has been ongoing and that his pain continues. He usually drinks 1 L of vodka per day. Denies fever, chills, shortness of breath, cough, palpitations, abdominal pain, nausea, vomiting, hematuria, dysuria, hematochezia, melena, headache, slurred speech, numbness, tingling, dizziness, lightheadedness, blurred vision, double vision. ED documentation reviewed. In the ED patient was treated with ibuprofen 400 mg and lorazepam. Vitals on admission T 98.1 F, MD 88 bpm, RR 18, BP 114/73, oxygen saturation 97% on room air EKG independently interpreted as sinus rhythm, rate 83 bpm, QTc 412 ms Chest x-ray shows no acute cardiopulmonary disease/process Labs on admission show WBC 11, hemoglobin 13.2, RDW 16.6, platelet count 108, INR 1, sodium 133, potassium 4, BUN 6, creatinine 0.6, magnesium 1.5, total bilirubin 1.1, AST 48, ALT 23, ALP 101 Troponin I 0.025, 0.020, 0.024 Review of systems: Pertinent positives and negatives as discussed in HPI, a complete review of systems was performed and all other systems are negative. Social history: Tobacco: Never smoker Alcohol: Daily Recreational drugs: Denies use Travel: No recent travel history Sick contacts: None Physical examination: Vital signs reviewed General: nontoxic, no distress, appears at stated age Derm: warm, dry, intact Head: atraumatic, normocephalic, symmetric Eyes: EOMI, anicteric sclera Mouth: no lip lesion, mucus membranes moist Cardiovascular: S1 S2 reg, no murmur Lungs: CTA bilateral, no rhonchi, no rales, no accessory muscle use Abdominal: soft, non-tender to palpation Extremities: No cyanosis, clubbing, or pedal edema. Neuro: Alert, Oriented, Gross neurological examination did not reveal any focal deficits. Psych: well appearing, appropriate affect Assessment/Plan: Patient is a 49 year old male with past medical history of of angina, cardiac catheterization, hypertension, seizure disorder was sent to the ED from [facility] due to alcohol intoxication. Active: #. Alcohol withdrawal Lorazepam 0.5 mg p.o. every 4 hours as needed for CIWA 4-5, lorazepam 1 mg p.o. every 4 hours as needed for CIWA 6-7, lorazepam 2 mg p.o. every 2 hours as needed for CIWA 10 or greater, lorazepam 2 mg p.o. every 3 hours as needed for CIWA 8-9, lorazepam 1 mg IV every 2 hours as needed for CIWA 8 or 9, lorazepam 1 mg IV every hour as needed for CIWA 10-15, lorazepam 2 mg IV Q 10M as needed for CIWA 16 or higher Started on Librium 25 mg PO TID Started on Thiamine 100 mg PO daily Started on Folic acid 1 mg PO daily Assess CIWA scale #. Chest pain, r/o ACS EKG independently interpreted as sinus rhythm, rate 83 bpm, QTc 412 ms Troponin I 0.025, 0.020, 0.024 Lipid panel shows triglycerides 43, cholesterol 135, LDL 38.4, VLDL 8.62, HDL 88 Echocardiogram done on 01/25/2025 shows EF 60 to 65%, mild concentric LVH, mild TR, epicardial fat Started on metoprolol 12.5 mg PO daily Cardiology consulted on last admission 2 days ago, recommended elevated troponin with a flat pattern not indicative of acute coronary syndrome, patient is a poor interventional candidate due to noncompliance, alcohol abuse. Unless patient develops acute angina symptoms, no plan for cardiac catheterization at this time Cardiology consulted for cardiac clearance required to go to [facility] rehab #. Hypomagnesemia Mg 1.5 Magnesium sulphate 4 gm IVPB Q1H #. Thrombocytopenia, likely alcohol related Platelet count 108 Monitor CBC #. Nausea and vomiting Continue ondansetron 4 mg IVP every 8 hours as needed F: 0.9 normal saline at 75 ml/hr E: Replete as required N: Heart healthy diet DVT prophylaxis: SCD GI prophylaxis: Pantoprazole 40 mg PO daily The patient is admitted with an anticipated more than 2 midnight stay for evaluation of alcohol withdrawal CODE STATUS: FULL CODE Discussed with: Patient Anticipated discharge place: Home Attestation: I have personally seen and examined the patient with Resident, reviewed the documentation and participated and agree with the assessment and plan as written. Huy Umaña MD Past Medical History Past Medical History: Chest Pain / Angina, Hypertension, Myocardial Infarction ([place]), Seizure Disorder Additional Past Medical History / Comment(s): [place] 3 months ago, no stents Last Myocardial Infarction Date:: October 2024 History of Any Multi-Drug Resistant Organisms: None Reported Past Surgical History: No Surgical Hx Reported Past Anesthesia/Blood Transfusion Reactions: No Reported Reaction Past Psychological History: Anxiety, Depression, PTSD Smoking Status: Never smoker Past Alcohol Use History: Abuse, Daily Additional Past Alcohol Use History / Comment(s): 1Liter of vodka a day of and on for over 1-2 years Past Drug Use History: Marijuana Additional Drug Use History / Comment(s): marijuana occassional - Past Family History Father Family Medical History: Myocardial Infarction ([place]) Medications and Allergies Home Medications Medication Instructions Recorded Confirmed Type Isosorbide Mononitrate ER [Imdur] 30 mg PO DAILY 14 Days #14 tab 01/30/25 Rx Metoprolol Tartrate [Lopressor] 12.5 mg PO DAILY 14 Days #14 tab 01/30/25 Rx Allergies Allergy/AdvReac Type Severity Reaction Status Date / Time Penicillins Allergy Rash/Hives/ Verified 01/29/25 08:16 Anaphylaxis Physical Exam Vitals: Vital Signs Temp Pulse Pulse Resp BP BP Pulse Ox 01/29/25 07:48 98.2 F 76 18 120/97 99 01/29/25 01:00 99.5 F 79 16 129/80 98 01/28/25 19:12 84 19 117/59 99 01/28/25 17:14 74 19 141/87 96 01/28/25 15:23 98.1 F 88 18 114/73 97 Intake and Output 01/28/25 01/29/25 01/29/25 22:59 06:59 14:59 Output Total 700 Balance -700 Output: Urine 700 Other: Weight 108.862 kg 108.862 kg Results CBC & Chem 7: 01/28/25 17:06 01/28/25 17:06 Labs: Abnormal Lab Results - Last 24 Hours (Table) 01/28/25 01/28/25 Range/Units 17:06 17:06 WBC 11.0 H (3.8-10.6) k/uL RDW 16.6 H (11.5-15.5) % Plt Count 108 L (150-450) k/uL Neutrophils # 7.9 H (1.3-7.7) k/uL Sodium 133 L (137-145) mmol/L Carbon Dioxide 21 L (22-30) mmol/L BUN 6 L (9-20) mg/dL Creatinine 0.60 L (0.66-1.25) mg/dL Magnesium 1.5 L (1.6-2.3) mg/dL Thrombosis Risk Factor Assmnt - Choose All That Apply Any of the Below Risk Factors Present?: Yes Each Factor Represents 1 point: Acute [place], Age 41-60 years Other Risk Factors: No Other congenital or acquired thrombophilia - If yes, enter type in comment: No Thrombosis Risk Factor Assessment Total Risk Factor Score: 2 Thrombosis Risk Factor Assessment Level: Low Risk
[2025-01-29] MEDS: FOLIC ACID 1 MG TAB PO SCH (14:06)
[2025-01-30] MEDS: ACETAMINOPHEN TAB 325 MG TAB PO PRN (00:17)
[2025-01-30] MEDS: MELATONIN 3 MG TABLET PO PRN (00:18)
[2025-01-30] MEDS: PANTOPRAZOLE 40 MG TABLET PO SCH (06:11)
[2025-01-30] MEDS: METOPROLOL TARTRATE 12.5 MG TAB PO SCH (08:38)
[2025-01-30] MEDS: ISOSORBIDE MONONITRATE ER 30 MG TAB.ER.24H PO SCH (11:10)
--- NOTE | 2025-01-30 13:01 | P.CRDCN ---
History of Present Illness Consult date: 01/30/25 Consult reason: chest pain History of present illness: This is a 49-year-old male with past medical history of hypertension, seizure disorder, alcohol abuse, marijuana use. We have been asked to evaluate the patient for chest pain. This is the third time that patient has presented to [facility] with chest pain. He has signed out AMA the next day on the first 2 occasions. Patient's history is unclear but he states he was at [facility] and because he did not have his heart medicines or he forgot them or lost them he was sent to [facility]. He states he has a little chest pain whenever he is stressed. He was told he has angina. He denies history of diabetes. He states he is not smoking as he quit 10 years ago. Patient is drinking 1 to 1-1/2 L of vodka daily. Patient has been started on CIWA protocol. Blood pressure 113/74, heart rate 56, pulse ox 96% on room air. -EKG: Sinus rhythm -Chest x-ray: No acute process. -Laboratory studies: WBC 11, hemoglobin 13.2, creatinine 0.6, troponin negative x 3. Magnesium 1.8. -Home cardiac medications: None. Patient states that he is on Imdur 30 mg daily -Echocardiogram performed 01/26/2025: EF 60%, mild concentric LVH, mild tricuspid regurgitation, epicardial fat. Normal RV size and systolic function. -Cardiac catheterization performed at [facility] 12/06/2024 revealed left main normal, LAD 50%, mid circumflex normal, nondominant RCA and normal. Review Of Systems: At the time of my exam: CONSTITUTIONAL: Denies fever or chills. HEENT: Denies blurred vision, vision changes, or eye pain. Denies hemoptysis CARDIOVASCULAR: Reports chest pain. Denies orthopnea. Denies PND. Denies palpitations RESPIRATORY: Denies shortness of breath. GASTROINTESTINAL: Denies abdominal pain. Denies nausea or vomiting. HEMATOLOGIC: Denies bleeding disorders. GENITOURINARY: Denies any blood in urine. SKIN: Denies puritis. Denies rash. Physical examination: Gen: This is a 49-year-old male in no acute distress VS: reviewed HEENT: Head is atraumatic, normocephalic. Pupils equal, round. Sclerae is anicteric. NECK: Supple. No JVD. LUNGS: Clear to auscultation. No wheezes or rhonchi. No intercostal retractions. HEART: Regular rate and rhythm. No murmur. ABDOMEN: Soft No tenderness. EXTREMITIES: No pedal edema. No calf tenderness. NEUROLOGICAL: Patient is awake, alert and oriented x3. Assessment: Atypical chest pain, acute coronary syndrome ruled out Alcohol use of 1.5 L of vodka daily Marijuana use Thrombocytopenia secondary to alcohol abuse Morbid obesity with BMI 41 Plan: Records from [facility] were reviewed Start patient on Imdur 30 mg daily No further cardiac workup at this time. Patient is cleared for discharge from a cardiology perspective. Cardiology will sign off this case and follow on an as-needed basis. Please reconsult for any new concerns. Patient may follow-up in the office in one to 2 weeks. Thank you kindly for this consultation. Nurse practitioner note has been reviewed, I agree with documented findings and plan of care. Patient was seen and examined. Past Medical History Past Medical History: Chest Pain / Angina, Hypertension, Myocardial Infarction ([place]), Seizure Disorder Additional Past Medical History / Comment(s): [place] 3 months ago, no stents Last Myocardial Infarction Date:: October 2024 History of Any Multi-Drug Resistant Organisms: None Reported Past Surgical History: No Surgical Hx Reported Past Anesthesia/Blood Transfusion Reactions: No Reported Reaction Past Psychological History: Anxiety, Depression, PTSD Smoking Status: Never smoker Past Alcohol Use History: Abuse, Daily Additional Past Alcohol Use History / Comment(s): 1Liter of vodka a day of and on for over 1-2 years Past Drug Use History: Marijuana Additional Drug Use History / Comment(s): marijuana occassional - Past Family History Father Family Medical History: Myocardial Infarction (WA) Medications and Allergies Home Medications Medication Instructions Recorded Confirmed Type No Known Home Medications 01/29/25 01/29/25 History Allergies Allergy/AdvReac Type Severity Reaction Status Date / Time Penicillins Allergy Rash/Hives/ Verified 01/29/25 08:16 Anaphylaxis Physical Exam Vitals: Vital Signs Temp Pulse Pulse Resp BP BP Pulse Ox 01/30/25 07:40 56 L 18 01/30/25 07:08 98 F 56 L 18 113/74 96 01/30/25 00:07 98.0 F 78 20 128/78 95 01/29/25 20:15 99.7 F H 76 20 126/75 96 01/29/25 19:31 99.7 F H 82 18 150/86 99 01/29/25 17:13 79 18 138/79 99 01/29/25 12:15 69 20 140/85 100 Intake and Output 01/29/25 01/30/25 01/30/25 22:59 06:59 14:59 Intake Total 780 Balance 780 Intake: Oral 780 Other: # Voids 2 Results 01/28/25 17:06 01/28/25 17:06 Current Medications Generic Name Dose Route Start Last Admin Trade Name Freq PRN Reason Stop Dose Admin Acetaminophen 650 mg 01/29/25 22:05 01/30/25 00:17 Acetaminophen Tab 325 Mg Tab PO 650 mg Q6HR PRN Administration Fever and/ or Pain Chlordiazepoxide HCl 25 mg 01/29/25 09:30 01/30/25 08:38 Chlordiazepoxide 25 Mg Cap PO 25 mg TID LYDIA Administration Folic Acid 1 mg 01/29/25 14:00 01/30/25 08:38 Folic Acid 1 Mg Tab PO 1 mg DAILY LYDIA Administration Sodium Chloride 1,000 mls @ 75 mls/hr 01/29/25 09:30 01/30/25 00:16 Saline 0.9% IV Not Given .[id number] [facility] Ibuprofen 400 mg 01/28/25 20:52 01/29/25 01:22 Ibuprofen 400 Mg Tab PO 400 mg Q6HR PRN Administration Mild Pain or Fever > 100.5 Ketorolac Tromethamine 15 mg 01/28/25 20:52 Ketorolac 15 Mg/Ml 1 Ml Vial IVP 01/31/25 20:53 Q6HR PRN Moderate Pain (Scale 4 to 6) Lorazepam 0.5 mg 01/28/25 20:54 Lorazepam 0.5 Mg Tab PO Q4HR PRN Ciwa 4 To 5 Lorazepam 1 mg 01/28/25 20:54 01/29/25 01:22 Lorazepam 1 Mg Tab PO 1 mg Q4HR PRN Administration Ciwa 6 To 7 Lorazepam 2 mg 01/28/25 20:54 01/29/25 09:27 Lorazepam 1 Mg Tab PO 2 mg Q2HR PRN Administration Ciwa 10 or greater Lorazepam 2 mg 01/28/25 20:54 Lorazepam 1 Mg Tab PO Q3HR PRN Ciwa 8 To 9 Lorazepam 1 mg 01/28/25 20:54 01/29/25 12:53 Lorazepam 2 Mg/Ml Inj IV 1 mg Q1HR PRN Administration CIWA 10 to 15 Lorazepam 1 mg 01/28/25 20:54 01/30/25 06:11 Lorazepam 2 Mg/Ml Inj IV 1 mg Q2HR PRN Administration CIWA 8 or 9 Lorazepam 2 mg 01/28/25 20:54 Lorazepam 2 Mg/Ml Inj IV 01/30/25 20:54 Q10M PRN CIWA 16 or higher Melatonin 6 mg 01/29/25 22:04 01/30/25 00:18 Melatonin 3 Mg Tablet PO 6 mg HS PRN Administration Insomnia Metoprolol Tartrate 12.5 mg 01/30/25 09:00 01/30/25 08:38 Metoprolol Tartrate 12.5 Mg Tab PO 12.5 mg DAILY LYDIA Administration Naloxone HCl 0.2 mg 01/28/25 20:52 Naloxone 0.4 Mg/Ml 1 Ml Vial IV Q2M PRN Opioid Reversal Ondansetron HCl 4 mg 01/29/25 09:23 Ondansetron 4 Mg/2 Ml Vial IVP Q8HR PRN Nausea And Vomiting Pantoprazole Sodium 40 mg 01/30/25 07:30 01/30/25 06:11 Pantoprazole 40 Mg Tablet PO 40 mg [id number] LYDIA Administration Thiamine HCl 100 mg 01/29/25 09:30 01/30/25 08:38 Thiamine 100 Mg Tab PO 100 mg DAILY LYDIA Administration Intake and Output 01/29/25 01/30/25 01/30/25 22:59 06:59 14:59 Intake Total 780 Balance 780 Intake: Oral 780 Other: # Voids 2 01/28/25 17:06 01/28/25 17:06
[2025-01-30] MEDS ORDERED: LORazepam 1 MG TAB PO PRN (13:19)
--- NOTE | 2025-01-30 13:22 | P.PN ---
Subjective Progress Note Date: 01/30/25 Principal diagnosis: Hospital course: Patient is a 49 year old male with past medical history of of angina, cardiac catheterization, hypertension, seizure disorder presented to the ED with chest pain. Patient was trying to get himself admitted to [facility] 1 week ago ago which is when he had chest pain. He was sent from [facility] to the ED and was admitted here. At the time his troponin levels were elevated. He was suspected to have a NSTEMI and was started on a heparin drip as well as nitro drip. He also admitted to suicidal thoughts upon admission to the ED on 01/24/2025, psychiatry was consulted and a sitter was placed at bedside. The patient was slightly upset about the sitter in his room. He was unable to be encouraged to stay and left AGAINST MEDICAL ADVICE yesterday. After leaving he tried to go to [facility] for detoxification. They found him to be intoxicated and given his recent cardiac issue he was sent back to the ED here. Patient was admitted again for alcohol intoxication, but he denied any chest pain and ACS was ruled out. He then left AMA again the next day. The patient presented to the ED yesterday, third time in the past week, for chest pain. He stated that this has been ongoing and that his pain continues. He usually drinks 1 L of vodka per day. Denies fever, chills, shortness of breath, cough, palpitations, abdominal pain, nausea, vomiting, hematuria, dysuria, hematochezia, melena, headache, slurred speech, numbness, tingling, dizziness, lightheadedness, blurred vision, double vision. ED documentation reviewed. In the ED patient was treated with ibuprofen 400 mg and lorazepam. Vitals on admission T 98.1 F, [place] 88 bpm, RR 18, BP 114/73, oxygen saturation 97% on room air EKG independently interpreted as sinus rhythm, rate 83 bpm, QTc 412 ms Chest x-ray shows no acute cardiopulmonary disease/process Labs on admission show WBC 11, hemoglobin 13.2, RDW 16.6, platelet count 108, INR 1, sodium 133, potassium 4, BUN 6, creatinine 0.6, magnesium 1.5, total bilirubin 1.1, AST 48, ALT 23, ALP 101 Troponin I 0.025, 0.020, 0.024 01/30/25: Patient seen and examined at bedside today. Vital signs are stable. Labs today show Mg 1.8. Patient denies any complaints. Review of systems: Pertinent positives and negatives as discussed in HPI, a complete review of systems was performed and all other systems are negative. Vitals: Signs Reviewed Physical examination: General: nontoxic, no distress, appears at stated age Derm: warm, dry, intact Head: atraumatic, normocephalic, symmetric Eyes: EOMI, anicteric sclera Mouth: no lip lesion, mucus membranes moist Cardiovascular: S1 S2 reg, no murmur Lungs: CTA bilateral, no rhonchi, no rales, no accessory muscle use Abdominal: soft, non-tender to palpation Extremities: No cyanosis, clubbing, or pedal edema. Neuro: Alert, Oriented, Gross neurological examination did not reveal any focal deficits. Psych: well appearing, appropriate affect Assessment/Plan: Patient is a 49 year old male with past medical history of of angina, cardiac catheterization, hypertension, seizure disorder was sent to the ED from [facility] due to alcohol intoxication. Active: #. Alcohol withdrawal Continue Lorazepam 0.5 mg p.o. every 4 hours as needed for CIWA 4-5, lorazepam 1 mg p.o. every 4 hours as needed for CIWA 6-7, Continue Librium 25 mg PO TID, Thiamine 100 mg PO daily, Folic acid 1 mg PO daily, multivitamin 1 tablet PO daily #. Chest pain, r/o ACS EKG independently interpreted as sinus rhythm, rate 83 bpm, QTc 412 ms Troponin I 0.025, 0.020, 0.024 Lipid panel shows triglycerides 43, cholesterol 135, LDL 38.4, VLDL 8.62, HDL 88 Echocardiogram done on 01/25/2025 shows EF 60 to 65%, mild concentric LVH, mild TR, epicardial fat Continue metoprolol 12.5 mg PO daily Started on Imdur 30 mg PO daily Cardiology consulted on last admission 2 days ago, recommended elevated troponin with a flat pattern not indicative of acute coronary syndrome, patient is a poor interventional candidate due to noncompliance, alcohol abuse. Unless patient develops acute angina symptoms, no plan for cardiac catheterization at this time Cardiology consulted for cardiac clearance required to go to [facility] rehab. Recommend no further cardiac workup at this time. Patient is cleared for discharge from a cardiology perspective. #. Hypomagnesemia, improved Mg 1.5 Magnesium sulphate 4 gm IVPB Q1H #. Thrombocytopenia, likely alcohol related Platelet count 108 Monitor CBC #. Nausea and vomiting Continue ondansetron 4 mg IVP every 8 hours as needed #. Insomnia Continue Melatonin 6 mg PO HS PRN F: 0.9 normal saline at 75 ml/hr E: Replete as required N: Heart healthy diet DVT prophylaxis: SCD GI prophylaxis: Pantoprazole 40 mg PO daily attestation: I have personally seen and examined the patient with Resident, reviewed the documentation and participated and agree with the assessment and plan as written. Huy Umaña MD Objective - Vital Signs Vital signs: Vital Signs Temp 98 F 01/30/25 07:08 Pulse 56 L 01/30/25 07:40 Resp 18 01/30/25 07:40 BP 113/74 01/30/25 07:08 Pulse Ox 96 01/30/25 07:08 FiO2 Intake & Output 01/29/25 01/30/25 01/30/25 18:59 06:59 18:59 Intake Total 780 Balance 780 Intake: Oral 780 Other: # Voids 2 - Labs CBC & Chem 7: 01/28/25 17:06 01/28/25 17:06
[2025-01-30] MEDS ORDERED: MULTIVITAMINS, THERA 1 EACH TAB PO SCH (13:30)
--- NOTE | 2025-01-30 14:18 | P.DS ---
Providers Date of admission: 01/28/25 19:27 Expected date of discharge: 01/30/25 Attending physician: Bipin Burns Consults: 01/29/25 12:20 Consult Physician Routine Consulting Provider: Sundeep Bright Consult Reason/Comments: chest pain, Cardiac clearance required by Rehab Do you want consulting provider notified?: Yes Primary care physician: Lucas Blake MD Hospital Course: Discharge diagnosis: Alcohol withdrawal Chest pain, r/o ACS Hypomagnesemia, improved Thrombocytopenia, likely alcohol related Nausea and vomiting Insomnia Hospital Course: Patient is a 49 year old male with past medical history of of angina, cardiac catheterization, hypertension, seizure disorder presented to the ED with chest pain. Patient was trying to get himself admitted to [place] 1 week ago ago which is when he had chest pain. He was sent from [place] to the ED and was admitted here. At the time his troponin levels were elevated. He was suspected to have a NSTEMI and was started on a heparin drip as well as nitro drip. He also admitted to suicidal thoughts upon admission to the ED on 01/24/2025, psychiatry was consulted and a sitter was placed at bedside. The patient was slightly upset about the sitter in his room. He was unable to be encouraged to stay and left AGAINST MEDICAL ADVICE yesterday. After leaving he tried to go to [place] for detoxification. They found him to be intoxicated and given his recent cardiac issue he was sent back to the ED here. Patient was admitted again for alcohol intoxication, but he denied any chest pain and ACS was ruled out. He then left AMA again the next day. The patient presented to the ED yesterday, third time in the past week, for chest pain. He stated that this has been ongoing and that his pain continues. He usually drinks 1 L of vodka per day. Denies fever, chills, shortness of breath, cough, palpitations, abdominal pain, nausea, vomiting, hematuria, dysuria, hematochezia, melena, headache, slurred speech, numbness, tingling, dizziness, lightheadedness, blurred vision, double vision. ED documentation reviewed. In the ED patient was treated with ibuprofen 400 mg and lorazepam. Vitals on admission T 98.1 F, [place] 88 bpm, RR 18, BP 114/73, oxygen saturation 97% on room air. EKG independently interpreted as sinus rhythm, rate 83 bpm, QTc 412 ms. Chest x-ray shows no acute cardiopulmonary disease/process. Labs on admission show WBC 11, hemoglobin 13.2, RDW 16.6, platelet count 108, INR 1, sodium 133, potassium 4, BUN 6, creatinine 0.6, magnesium 1.5, total bilirubin 1.1, AST 48, ALT 23, ALP 101. Troponin I 0.025, 0.020, 0.024 01/30/25: Patient seen and examined at bedside today. Vital signs are stable. Labs today show Mg 1.8. Patient denies any complaints. Patient seen at bedside today and is feeling good and excited about discharge. Patient will be discharged today and is given a script for Imdur and Metoprolol. Patient is advised to be compliant with medications. 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 Vital signs are reviewed and stable General: nontoxic, no distress, appears at stated age Derm: warm, dry, intact Head: atraumatic, normocephalic, symmetric Eyes: EOMI, anicteric sclera Mouth: no lip lesion, mucus membranes moist Cardiovascular: S1 S2 reg, no murmur Lungs: CTA bilateral, no rhonchi, no rales, no accessory muscle use Abdominal: soft, non-tender to palpation Extremities: No cyanosis, clubbing, or pedal edema. Neuro: Alert, Oriented, Gross neurological examination did not reveal any focal deficits. Psych: well appearing, appropriate affect A total of 30 minutes of time were spent preparing this complex discharge summary. Patient was discharged on 01/30/25 at 1430. Attestation: I have personally seen and examined the patient with Resident, reviewed the documentation and participated and agree with the assessment and plan as written. Huy Umaña MD Patient Condition at Discharge: Stable Plan - Discharge Summary Discharge Rx Participant: No New Discharge Prescriptions: New Isosorbide Mononitrate ER [Imdur] 30 mg PO DAILY 14 Days #14 tab Metoprolol Tartrate [Lopressor] 12.5 mg PO DAILY 14 Days #14 tab Discharge Medication List Isosorbide Mononitrate ER [Imdur] 30 mg PO DAILY 14 Days #14 tab 01/30/25 [Rx] Metoprolol Tartrate [Lopressor] 12.5 mg PO DAILY 14 Days #14 tab 01/30/25 [Rx] Follow up Appointment(s)/Referral(s): Lucas Blake MD [Primary Care Provider] - 1-2 days Patient Instructions/Handouts: Chest Pain (DC), Alcohol Intoxication (DC), Alcohol Withdrawal (DC) Discharge/Stand Alone Forms: In Substance Abuse Facilities Discharge Disposition: HOME SELF-CARE
[2025-01-30 14:29] VITALS: BP 112/70; PULSE 72; RESP 17; TEMP 98.6
== END 2025-01-30 16:13 | disposition home or self-care (01) ==
LOC: EC 15:20 → 5NMEDONC 19:27 → 4SSUR 01-29 00:15
PROVIDERS: ADMIT Hospitalist; ATTEND Hospitalist
DX: F10.139 Alcohol abuse with withdrawal, unspecified (principal); F10.129 Alcohol abuse with intoxication, unspecified; R07.89 Other chest pain; E83.42 Hypomagnesemia; D69.59 Other secondary thrombocytopenia; I10 Essential (primary) hypertension; F32.A Depression, unspecified; F41.9 Anxiety disorder, unspecified; F12.90 Cannabis use, unspecified, uncomplicated; G47.00 Insomnia, unspecified; I25.2 Old myocardial infarction; E66.01 Morbid (severe) obesity due to excess calories; Z68.41 Body mass index [BMI] 40.0-44.9, adult; Z79.82 Long term (current) use of aspirin; Z79.899 Other long term (current) drug therapy; Z88.0 Allergy status to penicillin
CPT/HCPCS: 96376 ×3; 82075; 96365; 96366; 96374; 96375; 99285; 36415; 93005; 80053; 83735 ×2; 84484 ×2; 85025; 85610; 85730; 71046; G0378 ×3; J2060 ×2; J3475